=== PATIENT | female | born 1980 | race Two or more races ===

== ENCOUNTER 2018-04-08 08:09 | Inpatient (IN) | payer OTHER ==
--- NOTE | 2018-04-08 08:27 | PDOC ---
History of Present Illness - General History Source: Patient Exam Limitations: No Limitations - History of Present Illness Initial Comments: 04/08/18 09:29 The patient is a 38 year old female with a significant PMH of hidradenitis( recently put on ajay) who presents to the emergency department with right underarm abscess for 1 week. The patient reports that her underarm abscess has been getting progressively worse. The patient report experiencing pain with severity of 9/10. The patient reports that her underarm abscess was draining previously but is no longer draining. The patient reports diarrhea associated with her new medication. The patient reports that she has been following up with Dr. Cruz regularly. She denies any chest pain, shortness of breath, headache and dizziness. The patient denies any fever, chills, nausea, vomiting or constipation. The patient denies any urinary symptoms.The patient denies any other complaints. <Stephen Nicholas - Last Filed: 04/08/18 09:38> <Matt Alonso - Last Filed: 04/08/18 13:18> - General Chief Complaint: Abscess Boil Stated Complaint: SWOLLEN ARM Time Seen by Provider: 04/08/18 08:26 Past History <Stephen Nicholas - Last Filed: 04/08/18 09:38> - Past Medical History COPD: No GI Disorders: Yes (REFLUX) Other medical history: hidradenitis suppurativa ( H.S) - Family Disease History Family Disease History: Diabetes: Mother - Immunization History Immunization Up to Date: Yes - Suicide/Smoking/Psychosocial Hx Smoking Status: Yes Smoking History: Current every day smoker Have you smoked in the past 12 months: Yes Number of Cigarettes Smoked Daily: 10 Information on smoking cessation initiated: Yes 'Breaking Loose' booklet given: 04/08/18 Hx Alcohol Use: No Drug/Substance Use Hx: No Substance Use Type: None Hx Substance Use Treatment: No <Matt Alonso - Last Filed: 04/08/18 13:18> - Past Medical History Allergies/Adverse Reactions: Allergies Allergy/AdvReac Type Severity Reaction Status Date / Time No Known Drug Allergies Allergy Verified 04/08/18 08:10 Review of Systems - Review of Systems Able to Perform ROS?: Yes Comments:: 04/08/18 09:29 Constitutional: No recent illness; no fever ENT: No sore throat Cardiovascular: No palpitations; no chest pain Pulmonary: No cough; no trouble breathing Gastrointestinal: (+)diarrhea. No nausea; no vomiting Genitourinary: No urinary problems; no hematuria Skin: (+)right underarm abscess. Lymph system: No swollen glands Musculoskeletal: No joint swelling Neurological: No weakness; oo numbness; No Headache; no vertigo; no lightheadedness Psychiatric:No anxiety; no depression <Stephen Nicholas - Last Filed: 04/08/18 09:38> *Physical Exam - Vital Signs Last Vital Signs Temp Pulse Resp BP Pulse Ox 98.2 F 100 H 18 107/71 100 04/08/18 08:13 04/08/18 08:13 04/08/18 08:13 04/08/18 08:13 04/08/18 08:13 - Physical Exam Comments: 04/08/18 09:38 Vitals: Triage vital signs reviewed General Appearance: No acute distress, well nourished, well developed Head: Atraumatic Neck: Supple; No nuchal rigidity Chest Wall: Nontender Cardiac: Regular rate and rhythm, no murmurs, no rubs, no gallops Lungs: Clear to auscultation bilateral, good air movement bilaterally Abdomen: Soft, nondistended, normal bowel sounds, nontender to palpation Genitourinary: Rectal: Exam deferred Extremities: Full range of motion to all extremities, no cyanosis, clubbing, or edema Skin: (+)Right axillary hidradenitis with surrounding cellulitis and mild lymphatic spread. Warm and dry, no petechiae <Stephen Nicholas - Last Filed: 04/08/18 09:38> - Vital Signs Last Vital Signs Temp Pulse Resp BP Pulse Ox 98.2 F 100 H 18 107/71 100 04/08/18 08:13 04/08/18 08:13 04/08/18 08:13 04/08/18 08:13 04/08/18 08:13 <Matt Alonso - Last Filed: 04/08/18 13:18> ED Treatment Course - LABORATORY CBC & Chemistry Diagram: 04/08/18 09:50 04/08/18 09:50 <Matt Alonso - Last Filed: 04/08/18 13:18> Medical Decision Making - Medical Decision Making 04/08/18 09:3 Initial assessment: The patient is a 38 year old female with a significant PMH of hidradenitis( recently put on ajay) who presents to the emergency department with right underarm abscess for 1 week. The patient will be given IV for pain and rash control will be contacted <Stephen Nicholas - Last Filed: 04/08/18 09:38> - Medical Decision Making Failure of by mouth outpatient antibiotics. Hx and exam c/w progressive cellulitis from Hidradenitis superlativa. Areas of infection are indurated nonfluctuant not amenable to drainage at this time. Given the patient is on Humira and immunocompromised we'll admit to hospitalist for ID consultation and IV antibiotics IV Clinda and PO rifampin ordered Dr. Blount to admit patient for further management <Matt Alonso - Last Filed: 04/08/18 13:18> *DC/Admit/Observation/Transfer - Attestations Scribe Attestion: 04/08/18 09:33 Documentation prepared by Stephen Nicholas, acting as medical dosimetrist for Matt Alonso MD. <Stephen Nicholas - Last Filed: 04/08/18 09:38> - Discharge Dispostion Decision to Admit order: Yes <Matt Alonso - Last Filed: 04/08/18 13:18> Diagnosis at time of Disposition: Axillary hidradenitis suppurativa - Discharge Dispostion Condition at time of disposition: Stable
[2018-04-08] MEDS ORDERED: SODIUM CHLORIDE 0.9% 1000 ML INFUS.BAG IV STA (08:49)
[2018-04-08 10:02] LABS: VENOUS PH 7.43 (7.32-7.42)
[2018-04-08 10:03] LABS: VENOUS PC02 35.6 mmHg (38-52)
[2018-04-08 10:05] LABS: URINE APPEARANCE SLCLOUDY; URINE BILIRUBIN NEGATIVE (<2.0 mg/dL); URINE BLOOD 2+ (NEGATIVE); URINE COLOR YELLOW; URINE GLUCOSE (UA) NEGATIVE (NEGATIVE); URINE KETONE NEGATIVE (NEGATIVE); URINE LEUK ESTERASE NEGATIVE (NEGATIVE); URINE NITRITE NEGATIVE (NEGATIVE); URINE PROTEIN NEGATIVE (NEGATIVE)
[2018-04-08 10:05] LABS: BASO % 0.6 % (0-2.0); EOS % 0.3 % (0-4.5); HEMOGLOBIN 12.3 GM/dL (10.7-15.3); LYMPH % 17.8 % (8-40); MCH 29.3 pg (25.7-33.7); MCHC 34.1 g/dl (32.0-36.0); MEAN CELL VOLUME 85.8 fl (80-96); MEAN PLT VOLUME 10.2 fl (7.5-11.1); MONO % 4.4 % (3.8-10.2); NEUT % 76.9 % (42.8-82.8); PLATELET COUNT 231 K/MM3 (134-434); RBC 4.19 M/mm3 (3.60-5.2); RDW 13.4 % (11.6-15.6); WHITE BLOOD COUNT 22.6 K/mm3 (4.0-10.0)
[2018-04-08 10:07] LABS: EPI CELLS FEW /HPF (FEW); URINE BACTERIA RARE /hpf (NONE SEEN); URINE HYALINE CAST 2 /lpf; URINE MUCUS MANY
[2018-04-08 10:20] LABS: INR 1.19 (0.82-1.09); PROTHROMBIN TIME (PATIENT) 13.5 SEC (9.7-13.0)
[2018-04-08] MEDS ORDERED: CLINDAMYCIN 600MG PREMIX IVPB 600 MG/50 ML BAG IVPB ONE ×2 (10:24→11:49)
[2018-04-08] MEDS ORDERED: RIFAMPIN 300 MG CAPSULE PO ONE (10:25)
[2018-04-08] MEDS ORDERED: morphine CARPU-JECT 4 MG/1 ML DISP.SYRIN IVPUSH ONE (10:40)
[2018-04-08 10:55] LABS: ALBUMIN 3.4 g/dl (3.4-5.0); ALK PHOS 93 U/L (45-117); ANION GAP 6 (8-16); BILIRUBIN,TOTAL 0.4 mg/dL (0.2-1.0); BLOOD UREA NITROGEN 9 mg/dL (7-18); CALCIUM 8.5 mg/dL (8.5-10.1); CHLORIDE 109 mmol/L (98-107); CO2 24 mmol/L (21-32); CREATININE 0.8 mg/dL (0.55-1.02); GLUCOSE,RANDOM 97 mg/dL (74-106); POTASSIUM 3.8 mmol/L (3.5-5.1); SGOT/AST 31 U/L (15-37); SGPT/ALT 50 U/L (12-78); SODIUM 139 mmol/L (136-145); TOT PROT 7.6 g/dl (6.4-8.2)
[2018-04-08] MEDS ORDERED: morphine SULFATE 4 MG/ML VIAL ONE (11:49)
--- NOTE | 2018-04-08 13:42 | HP ---
Admitting History and Physical - Primary Care Physician PCP: Vitor Blount - Admission History of Present Illness: 38 year old female with a significant PMH of hidradenitis(recently put on ajay) who presents to the emergency department with right underarm abscess for 1 week. The patient reports that her underarm abscess has been getting progressively worse. The patient report experiencing pain with severity of 9/ 10. The patient reports that her underarm abscess was draining previously but is no longer draining. The patient reports diarrhea associated with her new medication. The patient reports that she has been following up with Dr. Cruz regularly. She denies any chest pain, shortness of breath, headache and dizziness. The patient denies any fever, chills, nausea, vomiting or constipation. The patient denies any urinary symptoms.The patient denies any other complaints. - Past Medical History ...LMP: 06/03/13 - Smoking History Smoking history: Current every day smoker Have you smoked in the past 12 months: Yes Aproximately how many cigarettes per day: 10 - Alcohol/Substance Use Hx Alcohol Use: No Home Medications - Allergies Allergies/Adverse Reactions: Allergies Allergy/AdvReac Type Severity Reaction Status Date / Time No Known Drug Allergies Allergy Verified 04/08/18 08:10 Physical Examination Vital Signs: Vital Signs Temperature 98.6 F 04/08/18 13:14 Pulse Rate 76 04/08/18 13:14 Respiratory Rate 18 04/08/18 13:14 Blood Pressure 119/66 04/08/18 13:14 O2 Sat by Pulse Oximetry (%) 100 04/08/18 08:13 Constitutional: Yes: No Distress HENT: Yes: Atraumatic Neck: Yes: Supple Cardiovascular: Yes: Regular Rate and Rhythm Respiratory: Yes: CTA Bilaterally Gastrointestinal: Yes: Normal Bowel Sounds Extremities: Yes: WNL, Other (R axilla abcess) Edema: No Neurological: Yes: Alert, Oriented Labs: CBC, BMP 04/08/18 09:50 04/08/18 09:50 Problem List - Problems (1) Axillary hidradenitis suppurativa Assessment/Plan: iv abx id and surgery consult Code(s): L73.2 - HIDRADENITIS SUPPURATIVA (2) Abscess Code(s): L02.91 - CUTANEOUS ABSCESS, UNSPECIFIED Assessment/Plan Laboratory Results - last 24 hr 04/08/18 04/08/18 04/08/18 09:50 09:50 09:50 WBC 22.6 H D RBC 4.19 Hgb 12.3 D Hct 36.0 MCV 85.8 MCH 29.3 MCHC 34.1 RDW 13.4 D Plt Count 231 D MPV 10.2 Neutrophils % 76.9 Lymphocytes % 17.8 Monocytes % 4.4 Eosinophils % 0.3 Basophils % 0.6 PT with INR 13.50 H INR 1.19 H PTT (Actin FS) 28.0 VBG pH 7.43 H POC VBG pCO2 35.6 L POC VBG pO2 54.0 H Mixed VBG HCO3 23.6 Sodium Potassium Chloride Carbon Dioxide Anion Gap BUN Creatinine Creat Clearance w eGFR Random Glucose Lactic Acid Calcium Total Bilirubin AST ALT Alkaline Phosphatase Troponin I Total Protein Albumin Urine Color Urine Appearance Urine pH Ur Specific Kinder Urine Protein Urine Glucose (UA) Urine Ketones Urine Blood Urine Nitrite Urine Bilirubin Urine Urobilinogen Ur Leukocyte Esterase Urine WBC (Auto) Urine RBC (Auto) Ur Epithelial Cells Urine Bacteria Hyaline Casts Urine Mucus 04/08/18 04/08/18 04/08/18 09:50 09:50 09:50 WBC RBC Hgb Hct MCV MCH MCHC RDW Plt Count MPV Neutrophils % Lymphocytes % Monocytes % Eosinophils % Basophils % PT with INR INR PTT (Actin FS) VBG pH POC VBG pCO2 POC VBG pO2 Mixed VBG HCO3 Sodium 139 Potassium 3.8 Chloride 109 H Carbon Dioxide 24 Anion Gap 6 L BUN 9 Creatinine 0.8 Creat Clearance w eGFR > 60 Random Glucose 97 Lactic Acid 1.2 Calcium 8.5 Total Bilirubin 0.4 D AST 31 ALT 50 Alkaline Phosphatase 93 Troponin I < 0.02 Total Protein 7.6 Albumin 3.4 Urine Color Urine Appearance Urine pH Ur Specific Kinder Urine Protein Urine Glucose (UA) Urine Ketones Urine Blood Urine Nitrite Urine Bilirubin Urine Urobilinogen Ur Leukocyte Esterase Urine WBC (Auto) Urine RBC (Auto) Ur Epithelial Cells Urine Bacteria Hyaline Casts Urine Mucus 04/08/18 04/08/18 09:55 13:00 WBC RBC Hgb Hct MCV MCH MCHC RDW Plt Count MPV Neutrophils % Lymphocytes % Monocytes % Eosinophils % Basophils % PT with INR INR PTT (Actin FS) VBG pH POC VBG pCO2 POC VBG pO2 Mixed VBG HCO3 Sodium Potassium Chloride Carbon Dioxide Anion Gap BUN Creatinine Creat Clearance w eGFR Random Glucose Lactic Acid 0.7 Calcium Total Bilirubin AST ALT Alkaline Phosphatase Troponin I Total Protein Albumin Urine Color Yellow Urine Appearance Slcloudy Urine pH 5.0 Ur Specific Kinder 1.029 Urine Protein Negative Urine Glucose (UA) Negative Urine Ketones Negative Urine Blood 2+ H Urine Nitrite Negative Urine Bilirubin Negative Urine Urobilinogen 2.0 H Ur Leukocyte Esterase Negative Urine WBC (Auto) 3 Urine RBC (Auto) 27 Ur Epithelial Cells Few Urine Bacteria Rare Hyaline Casts 2 Urine Mucus Many Active Medications Generic Name Dose Route Start Last Admin Trade Name Freq PRN Reason Stop Dose Admin Acetaminophen 650 mg 04/08/18 15:38 Tylenol - PO Q6H PRN FEVER Acetaminophen 650 mg 04/08/18 15:53 Tylenol - PO Q4H PRN PAIN LEVEL 4 - 6 Docusate Sodium 100 mg 04/08/18 17:31 Colace - PO BID PRN CONSTIPATION Piperacillin Sod/Tazobactam 50 mls @ 100 mls/hr 04/08/18 14:30 04/08/18 15:50 Sod 3.375 gm/ Dextrose IVPB 100 mls/hr Q8H-IV LILIANE Administration Protocol Morphine Sulfate 4 mg 04/08/18 17:36 Morphine Sulfate IVPUSH Q4H PRN PAIN LEVEL 7 - 10 Oxycodone HCl 10 mg 04/08/18 15:53 Roxicodone - PO Q4H PRN PAIN LEVEL 4 - 6
[2018-04-08] MEDS ORDERED: ACETAMINOPHEN 325 MG TABLET (FP) PO PRN ×2 (13:43→15:38)
--- NOTE | 2018-04-08 14:25 | CON.ID ---
Consult Consult Specialty:: infectious diseases Reason for Consultation:: cellulittis of the axilla with hydradenitis and leukocytosis - History of Present Illness Chief Complaint: pain in the rt axilla with swelling History of Present Illness: 38 year old female with a significant PMH of hidradenitis(recently put on ajay) who presents to the emergency department with right underarm swelling for 1 week. The patient reports that her underarm abscess has been getting progressively worse. The patient report experiencing pain with severity of 9/ 10. The patient reports that her underarm abscess was draining previously but is no longer draining. She mentions that she has had this couple of times under other axilla and was drained She denies any chest pain, shortness of breath, headache and dizziness. The patient denies any fever, chills, nausea, vomiting or constipation. The patient denies any urinary symptoms.The patient denies any other complaints. she has severe pain though while raising the arm patient also has a very small swellings in both groins - History Source History Provided By: Patient Limitations to Obtaining History: No Limitations - Past Medical History ...LMP: 06/03/13 - Alcohol/Substance Use Hx Alcohol Use: No - Smoking History Smoking history: Current every day smoker Have you smoked in the past 12 months: Yes Aproximately how many cigarettes per day: 10 Home Medications - Allergies Allergies/Adverse Reactions: Allergies Allergy/AdvReac Type Severity Reaction Status Date / Time No Known Drug Allergies Allergy Verified 04/08/18 08:10 Review of Systems - Review of Systems Constitutional: reports: No Symptoms Eyes: reports: No Symptoms HENT: reports: No Symptoms Neck: reports: No Symptoms Cardiovascular: reports: No Symptoms Respiratory: reports: No Symptoms Gastrointestinal: reports: No Symptoms Musculoskeletal: reports: Other (axillary pain) Integumentary: reports: Erythema, Other (hydradenitits rt axilla and groins) Neurological: reports: No Symptoms Endocrine: reports: No Symptoms Hematology/Lymphatic: reports: No Symptoms Psychiatric: reports: No Symptoms Physical Exam Vital Signs: Vital Signs Temperature 98.4 F 04/08/18 13:57 Pulse Rate 74 04/08/18 13:57 Respiratory Rate 18 04/08/18 13:57 Blood Pressure 110/60 04/08/18 13:57 O2 Sat by Pulse Oximetry (%) 100 04/08/18 08:13 Constitutional: Yes: Well Nourished, Calm, Moderate Distress Eyes: Yes: Conjunctiva Clear HENT: Yes: Atraumatic, Normocephalic Neck: Yes: Supple, Trachea Midline Cardiovascular: Yes: Regular Rate and Rhythm Respiratory: Yes: Regular, CTA Bilaterally Gastrointestinal: Yes: Normal Bowel Sounds, Soft Musculoskeletal: Yes: WNL Extremities: Yes: Other (rt axillary swelling with pain and collection and tenderness) Integumentary: Yes: Erythema (rt axilla), Other Neurological: Yes: Alert, Oriented Psychiatric: Yes: Alert, Oriented Labs: CBC, BMP 04/08/18 09:50 04/08/18 09:50 Assessment/Plan Problem List - Problems (1) Hidradenitis suppurativa of right axilla Code(s): L73.2 - HIDRADENITIS SUPPURATIVA (2) Abscess of right axilla Code(s): L02.411 - CUTANEOUS ABSCESS OF RIGHT AXILLA (3) Cellulitis of right axilla Code(s): L03.111 - CELLULITIS OF RIGHT AXILLA (4) Obesity (BMI 35.0-39.9 without comorbidity) Code(s): E66.9 - OBESITY, UNSPECIFIED plan patient going for surgery today continue abx cx to be send rest as per the team
[2018-04-08 14:34] VITALS: BMI 35.2
[2018-04-08] MEDS ORDERED: morphine SULFATE 4 MG/ML VIAL IVPUSH PRN ×2 (15:37→17:36)
[2018-04-08] MEDS ORDERED: DEXTROSE 5%-WATER - 50 ML IVPB ONE (15:46)
[2018-04-08] MEDS ORDERED: PIPERACILLIN/TAZOBACTAM 3.375 GM VIAL IVPB ONE (15:46)
[2018-04-08] MEDS: PIPERACILLIN/TAZOB 3.375 GM 3.375 GM in DEXTROSE 5%-WATER - 50 ML IVPB SCH ×2 (15:50→18:57)
[2018-04-08] MEDS ORDERED: DOCUSATE SODIUM 100 MG CAPSULE (FP) PO PRN (17:31)
--- NOTE | 2018-04-08 18:01 | CONSULT ---
Consult Consult Specialty:: General Surgery Referred by:: Dr. Liriano Reason for Consultation:: right axillary hidradenitis with abscess - History of Present Illness Chief Complaint: right axillary swelling, pain, redness History of Present Illness: 38yo obese F with h/o hidradenitis in axillae, inframammary folds, groin, s/p L axillary excision and skin grafting and R inframammary excision and closure at [facility] last year, presented with significant pain, swelling, redness in right axilla, worsening since last week. She used to be on Remicade and was well -controlled, but insurance stopped covering it, and she started getting flares again. She follows with Dr. Cruz production control clerk, and was started on Doxycycline 03/26/18 for flares including a lesion at medial right inframammary fold, which was I&D'd by him and has since resolved. She also developed swelling , pain and redness in the right axilla, which initially was draining, but has since been getting worse, though the drainage has stopped. Last week, Sun she was started on Humira and is due for her next dose next week. She tried to reach Dr. Cruz when the axillary pain and swelling got worse, but could not take the pain and came to ER. In the ER, she was afebrile, wbc 22.6, and she was started on IV antibiotics and admitted to medicine. Surgery is consulted after ID saw her to continue antibiotics, to evaluate for possible I&D of right axilla. She is seen and examined in bed, crying in pain, and can lift her right arm but is extremely tender in the axilla. She had just eaten food at 3:30pm. - History Source History Provided By: Patient Limitations to Obtaining History: No Limitations - Past Medical History Gastrointestinal: Yes: GERD ...LMP: 06/03/13 ...: No Infectious Disease: Yes: C-Diff (last year) Dermatology: Yes: Other (hidradenitis suppurativa (axillae, inframammary, groin) ) - Past Surgical History Additional Surgical History: hidradenitis excision left axilla with skin graft; multiple I&Ds - Alcohol/Substance Use Hx Alcohol Use: Yes (social) History of Substance Use: reports: None - Smoking History Smoking history: Current every day smoker Have you smoked in the past 12 months: Yes Aproximately how many cigarettes per day: 10 - Social History Usual Living Arrangement: With Child ADL: Independent Home Medications - Allergies Allergies/Adverse Reactions: Allergies Allergy/AdvReac Type Severity Reaction Status Date / Time No Known Drug Allergies Allergy Verified 04/08/18 08:10 - Home Medications Home Medications (free text): spironolactone - restarted last week (for hidradenitis and androgenized sx). doxycycline 100mg bid started 03/26/18. Humira started last week Sun. Nexium prn. tylenol prn Family Disease History - Family Disease History Family Disease History: Diabetes: Grandparent, Heart Disease: Mother, CA: Grandparent, Father Review of Systems - Review of Systems Constitutional: reports: Loss of Appetite. denies: Chills, Fever Eyes: denies: Blurred Vision, Recent Change in Vision HENT: denies: Difficult Swallowing, Throat Pain Neck: denies: Swollen Glands, Tenderness Cardiovascular: denies: Chest Pain, Palpitations Respiratory: denies: Cough, SOB Gastrointestinal: reports: Diarrhea (started last week, ?abx-related). denies: Abdominal Pain, Constipation, Nausea, Vomiting Genitourinary: denies: Burning, Dysuria Breasts: reports: See HPI Musculoskeletal: denies: Back Pain, Joint Pain, Muscle Pain Integumentary: reports: Erythema (right axilla with hpi), Lump (right axilla with hpi) Neurological: denies: Dizziness, Headache Psychiatric: denies: Anxiety, Depression Physical Exam Vital Signs: Vital Signs Temperature 98.4 F 04/08/18 13:57 Pulse Rate 74 04/08/18 13:57 Respiratory Rate 18 04/08/18 13:57 Blood Pressure 110/60 04/08/18 13:57 O2 Sat by Pulse Oximetry (%) 100 04/08/18 14:09 Constitutional: Yes: Anxious, Moderate Distress (secondary to pain), Obese Eyes: Yes: Conjunctiva Clear, EOM Intact HENT: Yes: Atraumatic, Normocephalic Neck: Yes: Supple, Trachea Midline Cardiovascular: Yes: Regular Rate and Rhythm, Murmur (soft systolic) Respiratory: Yes: Regular, CTA Bilaterally Gastrointestinal: Yes: Normal Bowel Sounds, Soft, Abdomen, Obese. No: Tenderness ...Rectal Exam: Yes: Deferred Renal/: Yes: Other (healed scars in groin areas, no inflammatory changes currently). No: CVA Tenderness - Left, CVA Tenderness - Right Breast(s): Yes: Other (well-healed scar under right breast, small divot/dimple in scar at medial edge of inframammary fold, where lesion was bigger last week but has since resolved; healed scar at medial aspect of left inframammary fold) Musculoskeletal: No: Joint Swelling, Muscle Weakness Extremities: No: Cool, Cyanosis Edema: No Peripheral Pulses WNL: Yes Integumentary: Yes: Erythema (right axilla), Other (well-healed left axillary skin graft scar; right axilla with multiple divots and scars from previous I&Ds and sinus tracts, swelling and erythema over lateral and posterior areas, very tender, mild fluctuance possible, no drainage, mild local streaking ? lymphangitis). No: Jaundice, Rash Neurological: Yes: Alert, Oriented Psychiatric: Yes: Alert, Oriented Labs: CBC, BMP 04/08/18 09:50 04/08/18 09:50 CMP Sodium 139 mmol/L (136-145) 04/08/18 09:50 Potassium 3.8 mmol/L (3.5-5.1) 04/08/18 09:50 Chloride 109 mmol/L (98-107) H 04/08/18 09:50 Carbon Dioxide 24 mmol/L (21-32) 04/08/18 09:50 Anion Gap 6 (8-16) L 04/08/18 09:50 BUN 9 mg/dL (7-18) 04/08/18 09:50 Creatinine 0.8 mg/dL (0.55-1.02) 04/08/18 09:50 Creat Clearance w eGFR > 60 (>60) 04/08/18 09:50 Random Glucose 97 mg/dL (74-106) 04/08/18 09:50 Lactic Acid 0.7 mmol/L (0.0-2.0) 04/08/18 13:00 Calcium 8.5 mg/dL (8.5-10.1) 04/08/18 09:50 Total Bilirubin 0.4 mg/dL (0.2-1.0) D 04/08/18 09:50 AST 31 U/L (15-37) 04/08/18 09:50 ALT 50 U/L (12-78) 04/08/18 09:50 Alkaline Phosphatase 93 U/L (45-117) 04/08/18 09:50 Troponin I < 0.02 ng/ml (0.00-0.05) 04/08/18 09:50 Total Protein 7.6 g/dl (6.4-8.2) 04/08/18 09:50 Albumin 3.4 g/dl (3.4-5.0) 04/08/18 09:50 INR, PTT INR 1.19 (0.82-1.09) H 04/08/18 09:50 Problem List - Problems (1) Hidradenitis suppurativa of right axilla Assessment/Plan: acute flare with likely abscess pain manageable with morphine, percocet also ordered pt ate this afternoon - cannot take to OR until am Discussed with patient risks, benefits and alternatives of incision and drainage of right axillary abscess/hidradenitis, including but not limited to bleeding, infection, injury to adjacent structures; alternatives include antibiotics, delayed or no surgery - risks of this include failure of nonoperative therapy, worsening abscess, sepsis. Patient desires to proceed with operation - will take to OR for above in am. Informed consent signed for same. NPO after midnight antibiotics per ID pain meds prn OOB/ambulating as able pt will need VNS arranged postop for daily wound care with packings after discharge home instructions will be in d/c plan Thank you for the opportunity to participate in the care of this patient. Code(s): L73.2 - HIDRADENITIS SUPPURATIVA (2) Abscess of right axilla Code(s): L02.411 - CUTANEOUS ABSCESS OF RIGHT AXILLA (3) Cellulitis of right axilla Assessment/Plan: antibiotics per ID Code(s): L03.111 - CELLULITIS OF RIGHT AXILLA (4) Obesity (BMI 35.0-39.9 without comorbidity) Code(s): E66.9 - OBESITY, UNSPECIFIED
[2018-04-08] MEDS ORDERED: diphenhydrAMINE HCL 25 MG CAPSULE (FP) PO ONE (20:45)
[2018-04-09] MEDS: oxyCODONE HCL 5 MG TABLET PO PRN ×6 (00:33→21:56)
[2018-04-09] MEDS: ACETAMINOPHEN 325 MG TABLET (FP) PO PRN ×5 (00:36→21:57)
[2018-04-09] MEDS ORDERED: PIPERACILLIN/TAZOBACTAM 3.375 GM VIAL IVPB ONE ×3 (02:20→17:29)
[2018-04-09] MEDS ORDERED: DEXTROSE 5%-WATER - 50 ML IVPB ONE ×3 (02:20→17:29)
[2018-04-09] MEDS: PIPERACILLIN/TAZOB 3.375 GM 3.375 GM in DEXTROSE 5%-WATER - 50 ML IVPB SCH ×3 (02:24→17:34)
[2018-04-09 07:23] LABS: BASO % 0.2 % (0-2.0); EOS % 0.6 % (0-4.5); HEMATOCRIT 33.5 % (32.4-45.2); HEMOGLOBIN 11.1 GM/dL (10.7-15.3); LYMPH % 23.7 % (8-40); MCH 29.1 pg (25.7-33.7); MCHC 33.2 g/dl (32.0-36.0); MEAN CELL VOLUME 87.6 fl (80-96); MEAN PLT VOLUME 10.4 fl (7.5-11.1); MONO % 6.7 % (3.8-10.2); NEUT % 68.8 % (42.8-82.8); PLATELET COUNT 207 K/MM3 (134-434); RBC 3.82 M/mm3 (3.60-5.2); RDW 13.8 % (11.6-15.6); WHITE BLOOD COUNT 19.5 K/mm3 (4.0-10.0)
[2018-04-09 07:50] LABS: CHLORIDE 107 mmol/L (98-107); POTASSIUM 3.7 mmol/L (3.5-5.1); SODIUM 139 mmol/L (136-145)
[2018-04-09 07:59] LABS: ALBUMIN 3.1 g/dl (3.4-5.0); ALK PHOS 79 U/L (45-117); ANION GAP 6 (8-16); BILIRUBIN,TOTAL 0.6 mg/dL (0.2-1.0); BLOOD UREA NITROGEN 9 mg/dL (7-18); CALCIUM 8.1 mg/dL (8.5-10.1); CO2 26 mmol/L (21-32); CREATININE 0.9 mg/dL (0.55-1.02); GLUCOSE,RANDOM 90 mg/dL (74-106); SGOT/AST 25 U/L (15-37); SGPT/ALT 39 U/L (12-78)
--- NOTE | 2018-04-09 11:47 | PN ---
Progress Note, Physician History of Present Illness: still with lot of pain awaiting surgery planned for today no new issues - Current Medication List Current Medications: Active Medications Acetaminophen (Tylenol -) 650 mg PO Q6H PRN PRN Reason: FEVER Acetaminophen (Tylenol -) 650 mg PO Q4H PRN PRN Reason: PAIN LEVEL 4 - 6 Last Admin: 04/09/18 08:26 Dose: 650 mg Docusate Sodium (Colace -) 100 mg PO BID PRN PRN Reason: CONSTIPATION Piperacillin Sod/Tazobactam (Sod 3.375 gm/ Dextrose) 50 mls @ 100 mls/hr IVPB Q8H-IV LILIANE PRN Reason: Protocol Last Admin: 04/09/18 09:37 Dose: 100 mls/hr Oxycodone HCl (Roxicodone -) 10 mg PO Q4H PRN PRN Reason: PAIN LEVEL 4 - 6 Last Admin: 04/09/18 08:26 Dose: 10 mg - Objective Vital Signs: Vital Signs Temperature 99.2 F 04/09/18 05:40 Pulse Rate 73 04/09/18 05:40 Respiratory Rate 18 04/09/18 09:00 Blood Pressure 109/60 04/09/18 05:40 O2 Sat by Pulse Oximetry (%) 100 04/09/18 09:00 Constitutional: Yes: Calm, Mild Distress, Obese Cardiovascular: Yes: Regular Rate and Rhythm Respiratory: Yes: Regular, CTA Bilaterally Gastrointestinal: Yes: Normal Bowel Sounds, Soft Musculoskeletal: Yes: WNL Extremities: Yes: WNL, Other (rt axillary swelling) Neurological: Yes: Alert, Oriented Psychiatric: Yes: Alert Labs: CBC, BMP 04/09/18 06:20 04/09/18 06:20 INR, PTT INR 1.19 (0.82-1.09) H 04/08/18 09:50 Assessment/Plan Problem List - Problems (1) Hidradenitis suppurativa of right axilla Code(s): L73.2 - HIDRADENITIS SUPPURATIVA (2) Abscess of right axilla Code(s): L02.411 - CUTANEOUS ABSCESS OF RIGHT AXILLA (3) Cellulitis of right axilla Code(s): L03.111 - CELLULITIS OF RIGHT AXILLA (4) Obesity (BMI 35.0-39.9 without comorbidity) Code(s): E66.9 - OBESITY, UNSPECIFIED plan surgery postponed to today continue abx cx to be send rest as per the team pain mgmt
--- NOTE | 2018-04-09 11:56 | EKG ---
Test Reason : Blood Pressure : / mmHG Vent. Rate : 075 BPM Atrial Rate : 075 BPM P-R Int : 186 ms QRS Dur : 082 ms QT Int : 418 ms P-R-T Axes : 031 049 016 degrees QTc Int : 466 ms NORMAL SINUS RHYTHM NORMAL ECG WHEN COMPARED WITH ECG OF 24-JUN-2013 23:24, NO SIGNIFICANT CHANGE WAS FOUND Confirmed by MD CRISTINA, TIANA ([id number]) on 04/09/2018 11:55:47 AM Referred By: SUSIE VANCE Confirmed By:TIANA EVANS MD
[2018-04-09] MEDS ORDERED: ONDANSETRON 4 MG/2 ML VIAL IVPUSH PRN (14:29)
[2018-04-09] MEDS ORDERED: LACTATED RINGERS SOLUTION 1,000 ML IV SCH (14:30)
[2018-04-09] MEDS ORDERED: PROPOFOL 20 ML ONE ×2 (14:46→14:55)
[2018-04-09] MEDS ORDERED: KETOROLAC TROMETHAMINE 30 MG/1 ML VIAL ONE (14:47)
[2018-04-09] MEDS ORDERED: MIDAZOLAM HCL 2 MG/2 ML SINGLE DOSE VIAL ONE (14:47)
[2018-04-09] MEDS ORDERED: LIDOCAINE HCL/PF 2% SDV 5ML VIAL ONE (14:47)
[2018-04-09] MEDS ORDERED: SUCCINYLCHOLINE CHLORIDE 200 MG/10 ML VIAL ONE (14:47)
--- NOTE | 2018-04-09 15:44 | OP ---
Operative Note - Note: Operative Date: 04/09/18 Pre-Operative Diagnosis: right axillary hidradenitis with abscess Operation: incision and drainage of right axillary abscess, complicated Findings: 20ml pus evacuated from cavity through counterincisions at upper and lower end; irrigated, 1/4" [place] drain left through both incisions and sutured to itself Post-Operative Diagnosis: Same as Pre-op Surgeon: Reid Cho Pricing Intern: Ortiz Watkins Anesthesia: General (LMA) Specimens Removed: culture to micro Estimated Blood Loss (mls): 5 Drains & Tubes with Location: Mason drain R axilla Fluid Volume Replaced (mls): 400 (crystalloid) Operative Report Dictated: Yes
[2018-04-09] MEDS ORDERED: ACETAMINOPHEN INJECTION 100 ML IVPB ONE (15:45)
[2018-04-09] MEDS ORDERED: ACETAMINOPHEN 325 MG TABLET (FP) PO PRN (15:46)
[2018-04-09] MEDS ORDERED: oxyCODONE HCL 5 MG TABLET PO PRN (15:46)
[2018-04-09] MEDS ORDERED: DOCUSATE SODIUM 100 MG CAPSULE (FP) PO PRN (15:59)
[2018-04-09] MEDS: ACETAMINOPHEN 1000 MG/100 ML VIAL (NON FORMULARY) IVPB ONE ×2 (16:00→17:19)
[2018-04-09] MEDS ORDERED: ACETAMINOPHEN 1000 MG/100 ML VIAL (NON FORMULARY) IVPB ONE (16:15)
--- NOTE | 2018-04-09 16:36 | OP ---
DATE OF OPERATION: 04/09/2018 PREOPERATIVE DIAGNOSIS: Right axillary hidradenitis with abscess. POSTOPERATIVE DIAGNOSIS: Right axillary hidradenitis with abscess. PROCEDURE: Incision and drainage of right axillary abscess, complicated. SURGEON: Reid Cho MD TRUST ADMINISTRATIVE ASSISTANT: rOtiz Watkins MD ANESTHESIA: General by LMA. ESTIMATED BLOOD LOSS: 5 mL FLUIDS: Crystalloid 400 mL. SPECIMEN: Culture to Microbiology. DRAINS: A Mason drain was left in the right axilla. FINDINGS: Twenty milliliters of pus was evacuated from the cavity through counter-incisions at the upper and lower end. It was irrigated, and a 1/4-inch Mason drain left through both incisions and sutured to itself. DISPOSITION: Stable and awake to PACU. INDICATIONS FOR PROCEDURE: The patient is a 38-year-old, obese female with a history of hidradenitis in the axillae, inframammary folds, and groin, who presented to the emergency room with significant pain, swelling, and redness in the right axilla, worsening over the course of a week despite outpatient antibiotics of doxycycline. She has recently been started on Humira and had an initial white count of 22, 000. She was admitted to the medical service, started on IV antibiotics, and given pain medication. Risks, benefits, and alternatives of incision and drainage of right axillary abscess/hidradenitis in the operating room including, but not limited to, bleeding, infection, and injury to adjacent structures were discussed with the patient, who desires to proceed with the operation and is now brought to the OR for the same after signing informed consent. OPERATIVE TECHNIQUE: The patient was brought to the operating room and laid supine on the operating table. Sequential compression devices were applied to bilateral lower extremities, and as the patient was on treatment antibiotics on the floor with her last dose given as scheduled, no additional antibiotics were given in the operating room immediately prior to incision. After induction and LMA placement by Anesthesia, the patient was positioned with her elbow flexed and arm over her head to expose the right axilla. A small amount of axillary hair was clipped prior to prepping with Betadine and draping in sterile fashion. The fluctuant area of the abscess was easily appreciated now under anesthesia as being toward the lateral aspect of the axilla. There were a number of healed scars and crevices with sinus tracts, only one of which anteriorly had a small amount of thin purulent droplets expressible from it. This was not near the intended area of relief of the abscess. A small incision point was marked at the superior aspect of the fluctuant area and incised with a scalpel. The area was deepened into the subcutaneous tissues with a clamp tip until purulent drainage was encountered. A culture of pus was sent on a swab to Microbiology and suction tip used to evacuate the cavity of approximately 20 mL of pus. The suction tip was used to identify the inferior aspect of the cavity which was also noted to be at a soft, necrotic-looking skin spot. Toward the inferior aspect of this area, a very small ellipse of skin was excised, again with a scalpel, opening a counter-incision at the bottom end of the cavity. A fingertip was inserted through this lower incision and used to ensure all loculations on the inside of the cavity were broken up. The cavity lynn felt mostly smooth, and all pus was evacuated. It was irrigated from top to bottom several times with saline solution. Hemostasis was achieved with time and local pressure, although Bovie cautery was used at the exit site at the bottom on a couple of skin-edge bleeders. A 1/4-inch [place] drain was then threaded from one end of the cavity to the other through the incisions and sutured to itself with two sutures. The end was trimmed to leave a loop going through the cavity. Betadine was cleansed off the patient. The area was cleaned and dried, and a dressing of gauze and ABD pad held in place with silk tape was applied. Counts were correct at the end of the procedure. The patient was awakened and the LMA removed by Anesthesia. She was then moved back to a stretcher and taken to the recovery room in stable condition, having tolerated the procedure well. Reid Cho M.D. [id number] JOCE
--- NOTE | 2018-04-09 17:03 | PN ---
Progress Note, Physician History of Present Illness: s/p I and d - Current Medication List Current Medications: Active Medications Acetaminophen (Tylenol -) 650 mg PO Q6H PRN PRN Reason: FEVER Acetaminophen (Tylenol -) 650 mg PO Q4H PRN PRN Reason: PAIN LEVEL 6-10 Docusate Sodium (Colace -) 100 mg PO BID PRN PRN Reason: CONSTIPATION Piperacillin Sod/Tazobactam (Sod 3.375 gm/ Dextrose) 50 mls @ 100 mls/hr IVPB Q8H-IV LILIANE PRN Reason: Protocol Oxycodone HCl (Roxicodone -) 10 mg PO Q4H PRN PRN Reason: PAIN LEVEL 6-10 - Objective Vital Signs: Vital Signs Temperature 99.0 F 04/09/18 15:37 Pulse Rate 68 04/09/18 16:15 Respiratory Rate 12 04/09/18 16:15 Blood Pressure 106/40 04/09/18 16:15 O2 Sat by Pulse Oximetry (%) 100 04/09/18 16:15 Constitutional: Yes: No Distress HENT: Yes: Atraumatic Neck: Yes: Supple Cardiovascular: Yes: Regular Rate and Rhythm Respiratory: Yes: CTA Bilaterally Gastrointestinal: Yes: Normal Bowel Sounds Extremities: Yes: Other (s/p i and d R axilla) Neurological: Yes: Alert, Oriented Labs: CBC, BMP 04/09/18 06:20 04/09/18 06:20 INR, PTT INR 1.19 (0.82-1.09) H 04/08/18 09:50 Problem List - Problems (1) Axillary hidradenitis suppurativa Assessment/Plan: iv abx s/p I and d Code(s): L73.2 - HIDRADENITIS SUPPURATIVA (2) Abscess Code(s): L02.91 - CUTANEOUS ABSCESS, UNSPECIFIED
[2018-04-10] MEDS ORDERED: MAG HYDROX/AL HYDROX/SIMETH 30 ML UNIT-DOSE CUP PO ONE (01:30)
[2018-04-10] MEDS ORDERED: DEXTROSE 5%-WATER - 50 ML IVPB ONE ×2 (02:36→18:08)
[2018-04-10] MEDS ORDERED: PIPERACILLIN/TAZOBACTAM 3.375 GM VIAL IVPB ONE ×3 (02:36→18:08)
[2018-04-10] MEDS: oxyCODONE HCL 5 MG TABLET PO PRN ×6 (02:38→22:22)
[2018-04-10] MEDS: PIPERACILLIN/TAZOB 3.375 GM 3.375 GM in DEXTROSE 5%-WATER - 50 ML IVPB SCH ×3 (02:39→18:11)
[2018-04-10] MEDS: ACETAMINOPHEN 325 MG TABLET (FP) PO PRN ×6 (02:39→22:22)
--- NOTE | 2018-04-10 08:18 | PN ---
Progress Note (short form) - Note Progress Note: POD #1 - s/p drainage of hidradenitis under general anesthesia. VSS. Pt. doing well, sitting up comfortably in bed. No complaints. No apparent anesthetic complications noted. Continue current care.
[2018-04-10] MEDS: PANTOPRAZOLE 40 MG TABLET (FP) PO SCH (09:23)
--- NOTE | 2018-04-10 12:40 | PN ---
Progress Note, Physician History of Present Illness: patient doing well no complaints post op - Current Medication List Current Medications: Active Medications Acetaminophen (Tylenol -) 650 mg PO Q6H PRN PRN Reason: FEVER Last Admin: 04/10/18 06:04 Dose: 650 mg Acetaminophen (Tylenol -) 650 mg PO Q4H PRN PRN Reason: PAIN LEVEL 6-10 Last Admin: 04/10/18 10:06 Dose: 650 mg Docusate Sodium (Colace -) 100 mg PO BID PRN PRN Reason: CONSTIPATION Last Admin: 04/10/18 09:23 Dose: 100 mg Piperacillin Sod/Tazobactam (Sod 3.375 gm/ Dextrose) 50 mls @ 100 mls/hr IVPB Q8H-IV LILIANE PRN Reason: Protocol Last Admin: 04/10/18 09:23 Dose: 100 mls/hr Oxycodone HCl (Roxicodone -) 10 mg PO Q4H PRN PRN Reason: PAIN LEVEL 6-10 Last Admin: 04/10/18 10:06 Dose: 10 mg Pantoprazole Sodium (Protonix -) 40 mg PO DAILY [facility] Last Admin: 04/10/18 09:23 Dose: 40 mg - Objective Vital Signs: Vital Signs Temperature 98.5 F 04/10/18 09:00 Pulse Rate 99 H 04/10/18 09:00 Respiratory Rate 18 04/10/18 09:00 Blood Pressure 127/93 04/10/18 09:00 O2 Sat by Pulse Oximetry (%) 100 04/10/18 09:00 Constitutional: Yes: No Distress, Calm, Obese Cardiovascular: Yes: Regular Rate and Rhythm Respiratory: Yes: Regular, CTA Bilaterally Gastrointestinal: Yes: Normal Bowel Sounds, Soft Musculoskeletal: Yes: WNL Extremities: Yes: WNL Neurological: Yes: Alert, Oriented Psychiatric: Yes: Alert Labs: CBC, BMP 04/09/18 06:20 04/09/18 06:20 INR, PTT INR 1.19 (0.82-1.09) H 04/08/18 09:50 Assessment/Plan Problem List - Problems (1) Hidradenitis suppurativa of right axilla Code(s): L73.2 - HIDRADENITIS SUPPURATIVA (2) Abscess of right axilla Code(s): L02.411 - CUTANEOUS ABSCESS OF RIGHT AXILLA (3) Cellulitis of right axilla Code(s): L03.111 - CELLULITIS OF RIGHT AXILLA (4) Obesity (BMI 35.0-39.9 without comorbidity) Code(s): E66.9 - OBESITY, UNSPECIFIED plan post op doing well continue abx await for cx report
--- NOTE | 2018-04-10 17:37 | PN ---
Progress Note, Physician History of Present Illness: s/p I&D right axillary hidradenitis abscess with drain placement feeling much better - pain 4/10, 6-7 with moving around much can close and open shoulder/axilla eating, comfortable dressing intact - Current Medication List Current Medications: Active Medications Acetaminophen (Tylenol -) 650 mg PO Q6H PRN PRN Reason: FEVER Last Admin: 04/10/18 06:04 Dose: 650 mg Acetaminophen (Tylenol -) 650 mg PO Q4H PRN PRN Reason: PAIN LEVEL 6-10 Last Admin: 04/10/18 14:37 Dose: 650 mg Docusate Sodium (Colace -) 100 mg PO BID PRN PRN Reason: CONSTIPATION Last Admin: 04/10/18 09:23 Dose: 100 mg Piperacillin Sod/Tazobactam (Sod 3.375 gm/ Dextrose) 50 mls @ 100 mls/hr IVPB Q8H-IV LILIANE PRN Reason: Protocol Last Admin: 04/10/18 09:23 Dose: 100 mls/hr Oxycodone HCl (Roxicodone -) 10 mg PO Q4H PRN PRN Reason: PAIN LEVEL 6-10 Last Admin: 04/10/18 14:37 Dose: 10 mg Pantoprazole Sodium (Protonix -) 40 mg PO DAILY L[facility] Last Admin: 04/10/18 09:23 Dose: 40 mg - Objective Vital Signs: Vital Signs Temperature 98.5 F 04/10/18 14:00 Pulse Rate 75 04/10/18 14:00 Respiratory Rate 20 04/10/18 14:00 Blood Pressure 131/75 04/10/18 14:00 O2 Sat by Pulse Oximetry (%) 100 04/10/18 09:00 Constitutional: Yes: No Distress, Calm, Obese Eyes: Yes: Conjunctiva Clear, EOM Intact HENT: Yes: Atraumatic, Normocephalic Musculoskeletal: No: Joint Stiffness, Joint Swelling Extremities: No: Cool, Cyanosis, Erythema (erythema around wound resolved) Edema: No Integumentary: Yes: Incision (r axillary with Dub[place] intact), Tattoos. No: Erythema (redness around wound essentially resolved), Rash Wound/Incision: Yes: Dressing Dry and Intact, Dressing Removed (wound clean, no purulent drainage, Dub[place] moves easily), Draining (dried on dressing - old serosang, scant drainage present), Unapproximated (two small counterincisions with Mason through both) Neurological: Yes: Alert, Oriented Psychiatric: Yes: Alert, Oriented Labs: Microbiology 04/09/18 15:45 Gram Stain - Final Axilla/Armpit - Right 04/08/18 09:50 Blood Culture - Preliminary Blood - Peripheral Venous NO GROWTH OBTAINED AFTER 48 HOURS, INCUBATION TO CONTINUE FOR 3 DAYS. 04/08/18 09:40 Blood Culture - Preliminary Blood - Peripheral Venous NO GROWTH OBTAINED AFTER 48 HOURS, INCUBATION TO CONTINUE FOR 3 DAYS. GS with PMNs and Few gram negative bacilli Cx pending Problem List - Problems (1) Hidradenitis suppurativa of right axilla Assessment/Plan: POD1 s/p I&D of right axillary abscess with Mason placement wound clean, drainage on dressing, but minimal to scant present redressed with gauze and tape pt with good shoulder movement pain controlled with oral meds f/u wound culture to guide home abx therapy continue antibiotics per ID she will NOT need VNS on discharge - instructions in d/c plan pt to f/u next Sunday for drain removal Code(s): L73.2 - HIDRADENITIS SUPPURATIVA (2) Abscess of right axilla Code(s): L02.411 - CUTANEOUS ABSCESS OF RIGHT AXILLA (3) Cellulitis of right axilla Assessment/Plan: antibiotics per ID, nearly resolved entirely Code(s): L03.111 - CELLULITIS OF RIGHT AXILLA (4) Obesity (BMI 35.0-39.9 without comorbidity) Code(s): E66.9 - OBESITY, UNSPECIFIED
--- NOTE | 2018-04-10 18:40 | PN ---
Progress Note, Physician - Current Medication List Current Medications: Active Medications Acetaminophen (Tylenol -) 650 mg PO Q6H PRN PRN Reason: FEVER Last Admin: 04/10/18 06:04 Dose: 650 mg Acetaminophen (Tylenol -) 650 mg PO Q4H PRN PRN Reason: PAIN LEVEL 6-10 Last Admin: 04/10/18 18:38 Dose: 650 mg Docusate Sodium (Colace -) 100 mg PO BID PRN PRN Reason: CONSTIPATION Last Admin: 04/10/18 09:23 Dose: 100 mg Piperacillin Sod/Tazobactam (Sod 3.375 gm/ Dextrose) 50 mls @ 100 mls/hr IVPB Q8H-IV LILIANE PRN Reason: Protocol Last Admin: 04/10/18 18:11 Dose: 100 mls/hr Oxycodone HCl (Roxicodone -) 10 mg PO Q4H PRN PRN Reason: PAIN LEVEL 6-10 Last Admin: 04/10/18 18:37 Dose: 10 mg Pantoprazole Sodium (Protonix -) 40 mg PO DAILY [facility] Last Admin: 04/10/18 09:23 Dose: 40 mg - Objective Vital Signs: Vital Signs Temperature 98.5 F 04/10/18 14:00 Pulse Rate 75 04/10/18 14:00 Respiratory Rate 20 04/10/18 14:00 Blood Pressure 131/75 04/10/18 14:00 O2 Sat by Pulse Oximetry (%) 100 04/10/18 09:00 Constitutional: Yes: No Distress HENT: Yes: Atraumatic Neck: Yes: Supple Cardiovascular: Yes: Regular Rate and Rhythm Respiratory: Yes: CTA Bilaterally Extremities: Yes: WNL, Other (R axilla wound dressing in place) Neurological: Yes: Alert, Oriented Labs: CBC, BMP 04/09/18 06:20 04/09/18 06:20 INR, PTT INR 1.19 (0.82-1.09) H 04/08/18 09:50 Problem List - Problems (1) Axillary hidradenitis suppurativa Assessment/Plan: iv abx s/p I and d Code(s): L73.2 - HIDRADENITIS SUPPURATIVA (2) Abscess Code(s): L02.91 - CUTANEOUS ABSCESS, UNSPECIFIED
[2018-04-11] MEDS ORDERED: PIPERACILLIN/TAZOBACTAM 3.375 GM VIAL IVPB ONE ×3 (00:13→18:11)
[2018-04-11] MEDS ORDERED: DEXTROSE 5%-WATER - 50 ML IVPB ONE ×3 (00:14→18:12)
[2018-04-11] MEDS: PIPERACILLIN/TAZOB 3.375 GM 3.375 GM in DEXTROSE 5%-WATER - 50 ML IVPB SCH ×3 (01:25→18:22)
[2018-04-11] MEDS: oxyCODONE HCL 5 MG TABLET PO PRN ×3 (02:19→16:04)
[2018-04-11] MEDS: ACETAMINOPHEN 325 MG TABLET (FP) PO PRN ×3 (02:19→16:04)
--- NOTE | 2018-04-11 09:58 | PN ---
Progress Note, Physician Chief Complaint: right axillary abscess History of Present Illness: 38 yo female PMH hidradenititis and obesity presents with a painful abscess right axilla. She has been improving since surgery. Afebrile and resolving swelling and pain. No acute events overnight. - Current Medication List Current Medications: Active Medications Acetaminophen (Tylenol -) 650 mg PO Q6H PRN PRN Reason: FEVER Last Admin: 04/11/18 07:39 Dose: 650 mg Acetaminophen (Tylenol -) 650 mg PO Q4H PRN PRN Reason: PAIN LEVEL 6-10 Last Admin: 04/10/18 22:22 Dose: 650 mg Docusate Sodium (Colace -) 100 mg PO BID PRN PRN Reason: CONSTIPATION Last Admin: 04/10/18 09:23 Dose: 100 mg Piperacillin Sod/Tazobactam (Sod 3.375 gm/ Dextrose) 50 mls @ 100 mls/hr IVPB Q8H-IV LILIANE PRN Reason: Protocol Last Admin: 04/11/18 01:25 Dose: 100 mls/hr Oxycodone HCl (Roxicodone -) 10 mg PO Q4H PRN PRN Reason: PAIN LEVEL 6-10 Last Admin: 04/11/18 07:38 Dose: 10 mg Pantoprazole Sodium (Protonix -) 40 mg PO DAILY [facility] Last Admin: 04/10/18 09:23 Dose: 40 mg - Objective Vital Signs: Vital Signs Temperature 98.9 F 04/11/18 06:00 Pulse Rate 67 04/11/18 06:00 Respiratory Rate 18 04/11/18 06:00 Blood Pressure 112/57 04/11/18 06:00 O2 Sat by Pulse Oximetry (%) 100 04/10/18 21:00 Vital Signs Period Temp Pulse Resp BP Sys/Patterson Pulse Ox Last 24 Hr 98.1 F-98.9 F 63-75 18-20 112-135/57-90 100 Constitutional: Yes: Well Nourished, No Distress, Calm Eyes: Yes: Conjunctiva Clear, EOM Intact HENT: Yes: Atraumatic, Normocephalic Neck: Yes: Supple, Trachea Midline Cardiovascular: Yes: Regular Rate and Rhythm, S1, S2 Respiratory: Yes: Regular, CTA Bilaterally Gastrointestinal: Yes: Normal Bowel Sounds, Soft, Abdomen, Obese Edema: Yes Edema: RUE: Trace Peripheral Pulses WNL: Yes Wound/Incision: Yes: Clean/Dry, Dressing Removed, Unapproximated, Other (right axillary emma drain, minimal drainage.). No: Bleeding Neurological: Yes: Alert, Oriented Psychiatric: Yes: Alert, Oriented Labs: Microbiology 04/08/18 09:50 Blood - Peripheral Venous Blood Culture - Preliminary NO GROWTH OBTAINED AFTER 72 HOURS, INCUBATION TO CONTINUE FOR 2 DAYS. 04/08/18 09:40 Blood - Peripheral Venous Blood Culture - Preliminary NO GROWTH OBTAINED AFTER 72 HOURS, INCUBATION TO CONTINUE FOR 2 DAYS. 04/09/18 15:45 Axilla/Armpit - Right Gram Stain - Final 04/08/18 09:55 Urine - Urine Clean Catch Urine Culture - Final Problem List - Problems (1) Abscess of right axilla Assessment/Plan: 38yo female POD#2 s/p I&D of right axillary abscess with Emma placement. wound clean, dressing replaced, reduced local inflammation and improved pain. Normal shoulder movement. Repeat CBC f/u wound culture to guide home antibiotics therapy continue antibiotics per ID she will NOT need VNS on discharge - instructions in d/c plan pt to f/u next Sunday for drain removal Code(s): L02.411 - CUTANEOUS ABSCESS OF RIGHT AXILLA (2) Axillary hidradenitis suppurativa Code(s): L73.2 - HIDRADENITIS SUPPURATIVA (3) Obesity (BMI 35.0-39.9 without comorbidity) Code(s): E66.9 - OBESITY, UNSPECIFIED
[2018-04-11] MEDS: PANTOPRAZOLE 40 MG TABLET (FP) PO SCH (10:28)
[2018-04-11 11:35] LABS: BASO % 1.4 % (0-2.0); EOS % 1.3 % (0-4.5); HEMATOCRIT 31.5 % (32.4-45.2); HEMOGLOBIN 10.3 GM/dL (10.7-15.3); LYMPH % 35.9 % (8-40); MCH 28.2 pg (25.7-33.7); MCHC 32.6 g/dl (32.0-36.0); MEAN CELL VOLUME 86.6 fl (80-96); MONO % 5.6 % (3.8-10.2); NEUT % 55.8 % (42.8-82.8); PLATELET COUNT 216 K/MM3 (134-434); RBC 3.63 M/mm3 (3.60-5.2); RDW 13.6 % (11.6-15.6); WHITE BLOOD COUNT 12.6 K/mm3 (4.0-10.0)
[2018-04-11] MEDS ORDERED: PT OWN MED DRAWER 7, Y5N ONE (13:47)
--- NOTE | 2018-04-11 14:37 | PN ---
Progress Note, Physician History of Present Illness: patient stable wbc has trended down drain in place patient comfortable - Current Medication List Current Medications: Active Medications Acetaminophen (Tylenol -) 650 mg PO Q6H PRN PRN Reason: FEVER Last Admin: 04/11/18 07:39 Dose: 650 mg Acetaminophen (Tylenol -) 650 mg PO Q4H PRN PRN Reason: PAIN LEVEL 6-10 Last Admin: 04/10/18 22:22 Dose: 650 mg Docusate Sodium (Colace -) 100 mg PO BID PRN PRN Reason: CONSTIPATION Last Admin: 04/10/18 09:23 Dose: 100 mg Piperacillin Sod/Tazobactam (Sod 3.375 gm/ Dextrose) 50 mls @ 100 mls/hr IVPB Q8H-IV LILIANE PRN Reason: Protocol Last Admin: 04/11/18 10:28 Dose: 100 mls/hr Oxycodone HCl (Roxicodone -) 10 mg PO Q4H PRN PRN Reason: PAIN LEVEL 6-10 Last Admin: 04/11/18 07:38 Dose: 10 mg Pantoprazole Sodium (Protonix -) 40 mg PO DAILY [facility] Last Admin: 04/11/18 10:28 Dose: 40 mg - Objective Vital Signs: Vital Signs Temperature 98.9 F 04/11/18 06:00 Pulse Rate 67 04/11/18 06:00 Respiratory Rate 18 04/11/18 06:00 Blood Pressure 112/57 04/11/18 06:00 O2 Sat by Pulse Oximetry (%) 100 04/10/18 21:00 Constitutional: Yes: No Distress, Calm, Obese Cardiovascular: Yes: Regular Rate and Rhythm Respiratory: Yes: Regular, CTA Bilaterally Gastrointestinal: Yes: Normal Bowel Sounds, Soft Musculoskeletal: Yes: WNL Extremities: Yes: WNL Wound/Incision: Yes: Dressing Dry and Intact, Other (drain in place) Neurological: Yes: Alert, Oriented Psychiatric: Yes: Alert, Oriented Labs: CBC, BMP 04/11/18 10:45 04/09/18 06:20 INR, PTT INR 1.19 (0.82-1.09) H 04/08/18 09:50 Assessment/Plan Problem List - Problems (1) Hidradenitis suppurativa of right axilla Code(s): L73.2 - HIDRADENITIS SUPPURATIVA (2) Abscess of right axilla Code(s): L02.411 - CUTANEOUS ABSCESS OF RIGHT AXILLA (3) Cellulitis of right axilla Code(s): L03.111 - CELLULITIS OF RIGHT AXILLA (4) Obesity (BMI 35.0-39.9 without comorbidity) Code(s): E66.9 - OBESITY, UNSPECIFIED plan post op doing well continue abx cx report noted wbc has trended down patient can be switched to oral augmentin 875 mg bid for another 5 days needs to follow up with surgery
[2018-04-11 14:47] VITALS: BP 125/61; PULSE 60; TEMP 98.5
--- NOTE | 2018-04-11 18:20 | DS ---
Physical Examination Vital Signs: Vital Signs Temperature 98.5 F 04/11/18 14:00 Pulse Rate 60 04/11/18 14:00 Respiratory Rate 20 04/11/18 14:00 Blood Pressure 125/61 04/11/18 14:00 O2 Sat by Pulse Oximetry (%) 100 04/11/18 09:00 Constitutional: Yes: No Distress HENT: Yes: Atraumatic Neck: Yes: Supple Cardiovascular: Yes: Regular Rate and Rhythm Respiratory: Yes: CTA Bilaterally Gastrointestinal: Yes: Normal Bowel Sounds Extremities: Yes: Other (R axilla dressing intact) Neurological: Yes: Alert, Oriented Labs: CBC, BMP 04/11/18 10:45 04/09/18 06:20 Discharge Summary Reason For Visit: HIDRADENITIS SUPPURATIVA Current Active Problems Abscess of right axilla (Acute) Axillary hidradenitis suppurativa (Acute) Cellulitis of right axilla (Acute) Hidradenitis suppurativa of right axilla (Acute) Obesity (BMI 35.0-39.9 without comorbidity) (Acute) Condition: Stable - Instructions Diet, Activity, Other Instructions: Postoperative instructions: You had incision and drainage of right axillary abscess with drain placement on 04/09/[address] Reid Cho of [facility]. Activity: Resume your usual activities gradually, but no heavy exertion or lifting with right arm. You may shower daily with dressing off - move the rubber drain back and forth a bit through the wound tract while cleansing area. Just pat the incision area dry and keep covered with gauze and an absorbent pad as needed to collect drainage. Pain: For pain, you may use acetaminophen (Tylenol) 1-2 tabs every 4-6 hours as needed. If you are prescribed a Tylenol/narcotic combination for severe pain, use it instead of plain Tylenol only as needed and switch back when your pain starts decreasing. Do not take more than 4000mg of acetaminophen in a day. Take medications as prescribed or indicated on the labeling. Follow-up: Call Dr. Cho's office at [phone] to make your postop appointment (Sunday next week as advised). Clinic is held in the [facility] on the first floor of [facility]. Call the office if you have: * increasing pain not responsive to pain medication * fever of 101F or higher * vomiting * unusual or increasing bleeding or drainage from wounds * increasing redness or swelling at wound sites Also, see your primary medical doctor within 1-2 weeks. Referrals: Jeanna Liriano MD [Staff Physician] - Vitor Blount MD [Staff Physician] - Reid Cho MD [Staff Physician] - 1 Week Disposition: HOME - Home Medications Comprehensive Discharge Medication List: Ambulatory Orders Amoxicillin/Potassium Clav [Augmentin 875-125 Tablet] 1 each PO BID #14 tablet 04/10/18 ok home
== END 2018-04-11 19:27 | disposition home or self-care (01) | DRG 607 ==
LOC: JER 08:09 → JERBED 10:52 → OBSVTOIN 13:42 → J6S 13:58
PROVIDERS: ADMIT Internal Medicine; ATTEND Internal Medicine
PROC: 0X940ZX Drainage of Right Axilla, Open Approach, Diagnostic (ICD-10-PCS; principal; 2018-04-09 13:00)
DX: L73.2 Hidradenitis suppurativa (principal); L02.91 Cutaneous abscess, unspecified; F17.210 Nicotine dependence, cigarettes, uncomplicated; L03.111 Cellulitis of right axilla; E66.9 Obesity, unspecified; Z68.35 Body mass index [BMI] 35.0-35.9, adult; K21.9 Gastro-esophageal reflux disease without esophagitis
CPT/HCPCS: 36415; 80053; 81003; 81015; 82803; 83605; 84484; 84703; 85025; 85610; 85730; 87040; 87070; 87086; 87186; 87205; 93005; 93010; 94760; 99283-25; G0378; J0131; J7030

== ENCOUNTER 2018-06-17 13:29 | Emergency (ER) | payer OTHER ==
[2018-06-17 13:39] VITALS: BP 116/78; PULSE 91; TEMP 99.4; BMI 34.4
--- NOTE | 2018-06-17 14:21 | PDOC ---
History of Present Illness - General Chief Complaint: Pain, Acute Stated Complaint: RT ARM PAIN Time Seen by Provider: 06/17/18 13:45 - History of Present Illness Initial Comments: 06/17/18 13:51 CHIEF COMPLAINT: abscess HISTORY OF PRESENT ILLNESS: 38 yo F with hx of hidradenitis suppurativa presents to fast track with abscess to R axilla. Patient states she was started on Levaquin, metronidazole, and rifampin recently "but I haven't started taking the one with L yet because I felt like that was a lot of antibiotics." Patient reports severe pain to R axilla. Denies fever, chills, vomiting, diarrhea. PAST MEDICAL HISTORY: Denies past medical history FAMILY HISTORY: Denies SOCIAL HISTORY: Denies tobacco, alcohol, illicit drug use. SURGICAL HISTORY: Denies ALLERGIES: No known drug allergies REVIEW OF SYSTEMS General/Constitutional: Denies fever or chills. Denies weakness, weight change. HEENT: Denies change in vision. Denies ear pain or discharge. Denies sore throat. Cardiovascular: Denies chest pain or shortness of breath. Respiratory: Denies cough, wheezing, or hemoptysis. Gastrointestinal: Denies nausea, vomiting, diarrhea or constipation. Denies rectal bleeding. Genitourinary: Denies dysuria, frequency, or change in urination. Musculoskeletal: Denies joint or muscle swelling or pain. Denies neck or back pain. Skin: Recurrent abscess to R axilla. Neurologic: Denies headache, vertigo, loss of consciousness, or loss of sensation. PHYSICAL EXAM General Appearance: Well-appearing, appropriately dressed. No apparent distress. HEENT: EOMI, PERRLA. No conjunctival pallor. No photophobia, scleral icterus. Respiratory/Chest: Lungs CTAB. Cardiovascular: RRR. S1, S2. Gastrointestinal/Abdominal: Normal bowel sounds. Abdomen soft, non-distended. No tenderness or rebound tenderness. No organomegaly, pulsatile mass, guarding , hernia, hepatomegaly, splenomegaly. Musculoskeletal/Extremities: Normal inspection. FROM of all extremities, normal capillary refill. Pelvis Stable. No CVA tenderness. No tenderness to extremities, pedal edema, swelling, erythema or deformity. Integumentary: Induration to entire right axilla with fluctuant abscess to superior aspect of abscess, with purulent drainage. Otherwise appropriate color , dry, warm. 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 Fully oriented, alert. Appropriate mood/affect. Motor strength 5/5. No appreciable EOM palsy, facial droop or sensory deficit. Past History - Past Medical History Allergies/Adverse Reactions: Allergies Allergy/AdvReac Type Severity Reaction Status Date / Time No Known Drug Allergies Allergy Verified 06/17/18 13:36 Home Medications: Ambulatory Orders Levofloxacin [Levaquin] 500 mg PO TID 06/17/18 Rifampin [Rifadin -] 300 mg PO BID 06/17/18 Spironolactone 25 mg PO BID 06/17/18 metroNIDAZOLE [Flagyl -] 500 mg PO BID 06/17/18 GI Disorders: Yes (REFLUX) - Family Disease History Family Disease History: Diabetes: Mother - Immunization History Immunization Up to Date: Yes - Suicide/Smoking/Psychosocial Hx Smoking Status: Yes Smoking History: Current every day smoker Have you smoked in the past 12 months: Yes Number of Cigarettes Smoked Daily: 5 Information on smoking cessation initiated: No 'Breaking Loose' booklet given: 04/08/18 Hx Alcohol Use: No Drug/Substance Use Hx: No Substance Use Type: None Hx Substance Use Treatment: No *Physical Exam - Vital Signs Last Vital Signs Temp Pulse Resp BP Pulse Ox 99.4 F 91 H 16 116/78 100 06/17/18 13:36 06/17/18 13:36 06/17/18 13:36 06/17/18 13:36 06/17/18 13:36 Procedures - Consent Consent obtained: Verbal - Incision and Drainage I&D Site: Right: Axilla Anesthesia: 1% Lidocaine Volume(ml): 5 Blade Size: 11 Attempts: 1 Iodinated Packin/4 in (2 inches packed) Dressing: Yes (telfa, dry gauze, paper tape) Progress: 06/17/18 14:55 well tolerated. approximately 5 mL purulent drainage expressed, wound culture sent. Medical Decision Making - Medical Decision Making 06/17/18 14:33 38 yo F with hx of hidradenitis suppurativa presents to fast track with abscess to R axilla. -I&D performed, wound culture sent Discussed case with MD Gupta, fellow at derm MD Cruz's office, who states patient should continue current meds and f/u outpatient. Advised patient to take medications as prescribed and return in 2 days for wound check. Patient is to follow up with Dr. Cruz. Advised patient of signs and symptoms for return to ED. Patient verbalized understanding and agrees to plan. *DC/Admit/Observation/Transfer Diagnosis at time of Disposition: Hidradenitis suppurativa - Discharge Dispostion Disposition: HOME Condition at time of disposition: Good Decision to Admit order: No - Referrals - Patient Instructions Printed Discharge Instructions: Ciscoradenitis Suppurativa DI for Incision and Drainage of a Skin Abscess Additional Instructions: As discussed, please return in 2 days for wound check. Take all medications as prescribed by Dr. Cruz's office and complete the entire course of medication, even if your symptoms improve. Follow up with Dr. Cruz's office within the next week. If you develop fever, vomiting, diarrhea, chills, or any new or worsening symptoms, please return to the ER . - Post Discharge Activity
--- NOTE | 2018-06-27 07:43 | PDOC ---
Patient Follow-up (Call Back) - Post ED Follow - Up Condition at time of discharge: Good Disposition at time of original discharge: HOME Reason for Call Back: Abnwl. Microbiology (Wound culture shows enterococcus faecialis, Pseudomonas aeruginosa, alpha hemolytic streptococcus. Spoke to patient and states is on Levaquin and Flagyl still and symptoms have improved)
== END 2018-06-17 14:43 | disposition home or self-care (01) ==
LOC: JERFT 13:29
PROC: 0X940ZZ Drainage of Right Axilla, Open Approach (ICD-10-PCS; principal; 2018-06-17)
DX: L73.2 Hidradenitis suppurativa (principal)
CPT/HCPCS: 87070; 87077; 87186; 87205; 99281-25

== ENCOUNTER 2018-10-20 21:17 | Emergency (ER) | payer OTHER ==
[2018-10-20 21:30] VITALS: BP 134/76; PULSE 89; TEMP 99; BMI 36.0
--- NOTE | 2018-10-20 21:54 | PDOC ---
Attending Attestation - HPI HPI: 10/20/18 23:04 The patient is a 38 year old female with a past medical history of GERD here today for evaluation of left upper back pain. The patient reports waking up this morning and feeling like she pulled a muscle. She reports the pain is worse with deep breaths and with any motion and radiated about longterm down her ribcage. The patient notes that heat therapy, vicks, and zeb muscle and joints did not help with her pain. Patient denies headache, lightheadedness. Denies fever, chills. Denies chest pain, shortness of breath. Denies nausea, vomiting, diarrhea, abdominal pain. Denies lower extremity edema. Denies urinary symptoms. Denies neurologic symptoms. Allergies: NKDA Surgical history: none reported PCP: none reported <Jarrell Ward - Last Filed: 10/20/18 23:04> - Physicial Exam PE: 10/21/18 00:28 Agree with resident exam. Patient is alert and oriented and in no acute distress. Lungs are clear. Heart has regular rate and rhythm. + tenderness to palpation over the trapezius muscle. - Medical Decision Making 10/21/18 00:39 Pt presents to the ED complaining of sharp, pleuritic, chest and upper back pain. HEART score is 0. PERC negative. CXR is negative for acute pathology. Most likely muscular pain. Will treat with motrin and discharge home. <Ruma Sims - Last Filed: 10/21/18 00:43>
[2018-10-20] MEDS ORDERED: ACETAMINOPHEN 500 MG TABLET (FP) PO ONE (22:01)
--- NOTE | 2018-10-20 22:08 | PDOC ---
History of Present Illness - General Chief Complaint: Back Pain Stated Complaint: DIFFICULTY BREATHING,MUSCLE PAIN Time Seen by Provider: 10/20/18 21:51 History Source: Patient Exam Limitations: No Limitations - History of Present Illness Initial Comments: 10/20/18 22:02 38 YOF with h/o hydradenitis suppurative on Humira injection weekly with prior axillary sweat gland removal, GERD not requiring medication, and prior , who p/w left thoacic back pain radiating to her left anterior chest up to and present persistently since awakening this morning at 9 am, worse with deep breathing. She does not recall having slept strangely and has no idea what may have brought this on. She has had much milder similar pain in the past but never this bad or long-lasting, never bad enough to prompt her to be seen medically. She denies any headache, neck pain, lightheadedness, vertigo, vision change, SOB, cough, runny nose, sore throat, diaphoresis, arm pain, abdominal pain, palpitations, f/c/n/v/d/c, dysuria, vaginal discharge, or other symptoms. LMP just ended and was normal, denies chance of being , no recent falls or injuries. She took #2 full strength ASA, tried hot pack, nothing has worked. Past History - Past Medical History Allergies/Adverse Reactions: Allergies Allergy/AdvReac Type Severity Reaction Status Date / Time No Known Drug Allergies Allergy Verified 06/17/18 13:36 Home Medications: Ambulatory Orders Levofloxacin [Levaquin] 500 mg PO TID 06/17/18 Rifampin [Rifadin -] 300 mg PO BID 06/17/18 Spironolactone 25 mg PO BID 06/17/18 metroNIDAZOLE [Flagyl -] 500 mg PO BID 06/17/18 Ibuprofen [Motrin -] 800 mg PO TID #21 tablet 10/21/18 Methocarbamol [Robaxin -] 500 mg PO TID #21 tablet 10/21/18 COPD: No GI Disorders: Yes (REFLUX) - Family Disease History Family Disease History: Diabetes: Mother - Immunization History Immunization Up to Date: Yes - Suicide/Smoking/Psychosocial Hx Smoking Status: Yes Smoking History: Current every day smoker Have you smoked in the past 12 months: Yes Number of Cigarettes Smoked Daily: 10 Information on smoking cessation initiated: No 'Breaking Loose' booklet given: 04/08/18 Hx Alcohol Use: No Drug/Substance Use Hx: No Substance Use Type: None Hx Substance Use Treatment: No Review of Systems - Review of Systems Able to Perform ROS?: Yes Comments:: 10/20/18 22:08 GEN: no fever, chills, malaise, generalized weakness, or weight change HEENT: no ear pain, sore throat, vision change, or eye pain CV: left chest wall pain, no palpitations, lightheadedness, syncope, or edema RESP: no cough, wheezing, or SOB GI: no abdominal pain, nausea, vomiting, diarrhea, constipation, or white/black/ bloody stool : no dysuria, hematuria, incontinence, retention, bleeding, or discharge MSK: left upper back pain, no neck pain, otherwise no muscle weakness/pain, or joint swelling/pain NEURO: no headache, seizure, vertigo, numbness, tingling, or focal weakness PSYCH: no substance use, no behavior change SKIN: no jaundice, no rash ROS otherwise negative except as noted in HPI *Physical Exam - Vital Signs Last Vital Signs Temp Pulse Resp BP Pulse Ox 99 F 89 20 134/76 99 10/20/18 21:22 10/20/18 21:22 10/20/18 21:22 10/20/18 21:22 10/20/18 21:22 10/20/18 22:09 GENERAL: alert, oriented, well-appearing adult female who is comfortable at rest , accompanied by her daughter, answers questions appropriately, uncomfortable appearing on repositioning or removing her coat for exam HEENT: PERRLA, EOMI, moist mucous membranes NECK/BACK: moderate left paraspinous ttp and left trapezius ttp extending from about T1 to T8, no midline ttp, no spinal stepoff or deformity, no costal stepoff or deformity, no subcutaneous emphysema or crepitus, no hematoma, full ROM, neck supple CHEST WALL: tattoo noted left anterior chest wall, mild tenderness to compression of left anterior chest wall, no skin changes, no costal stepoff or deformity, no subcutaneous emphysema or crepitus CARDIOVASCULAR: regular rate/rhythm, normal S1S2, no MGR, strong peripheral pulses, capillary refill <2 seconds, extremities wwp, no edema LUNGS/RESPIRATORY: no respiratory distress, CTAB, no decreased breath sounds in any field GI/ABDOMEN: obese, symmetric [id number], normoactive BS, soft, no ttp, no midline pulsatile masses : no CVA tenderness EXTREMITIES: no muscle atrophy, no acute deformity, no edema SKIN: posterior neck with acanthosis nigricans, warm and dry, no pallor, no jaundice, no rash, no bruising, no skin breakdown, no cuts, no lesions NEUROLOGICAL: GCS 15, CN II-XII grossly intact, 5/5 strength proximally and distally, no facial droop Heart Score/ECG Review #1 10/20/18 23:59 Sinus rhythm, rate 59, normal axis/intervals, TWF in III, no ischemic ST-T changes ED Treatment Course - LABORATORY CBC & Chemistry Diagram: 10/20/18 22:14 10/20/18 22:14 - RADIOLOGY Radiology Studies Ordered: Category Date Time Status CHEST PA & LAT [RAD] Stat Radiology 10/20/18 22:01 Ordered Medical Decision Making - Medical Decision Making 10/20/18 22:12 Adult Pt p/w left upper back pain and left chest pain. Initial Vital Signs Temp Pulse Resp BP Pulse Ox 99 F 89 20 134/76 99 10/20/18 21:22 10/20/18 21:22 10/20/18 21:22 10/20/18 21:22 10/20/18 21:22 Exam: As noted in Physical Exam section. DDX IBNLT: most likely muscle spasm, strain, sprain, or costochondritis, but very important to r/o PNA (especially since the patient is on Humira), ACS ( especially given smoking history and obesity), PUD, gastritis, cholecystitis, cholangitis, pancreatitis, pericarditis, PTX, PE (patient is low risk on PERC criteria), esophageal stricture, esophageal FB, colitis, pleurisy, pleuritis, MVP, panic/anxiety, etc. I am not concerned for tamponade, aortic dissection, AAA, or bowel perforation. W/U ordered: CBCD CMP Mg Phos Lipase Troponin CK CKMB UA UCx hCG EKG CXR. TX ordered: Tylenol 975 to start EKG: Reviewed; results as noted in ECG Review section. Laboratory Tests 10/20/18 10/20/18 10/20/18 22:14 22:14 22:14 WBC 14.8 H RBC 4.25 Hgb 12.8 Hct 36.2 MCV 85.0 MCH 30.1 MCHC 35.3 RDW 13.8 Plt Count 244 MPV 9.9 Absolute Neuts (auto) 9.5 H Neutrophils % 64.6 Lymphocytes % 28.8 Monocytes % 4.4 Eosinophils % 1.2 Basophils % 1.0 Nucleated RBC % 0 Sodium 140 Potassium 4.0 Chloride 108 H Carbon Dioxide 27 Anion Gap 6 L BUN 13 Creatinine 0.9 Creat Clearance w eGFR > 60 Random Glucose 107 H Calcium 8.6 Total Bilirubin 0.1 L AST 25 ALT 31 Alkaline Phosphatase 92 Creatine Kinase 177 Creatine Kinase Index 1.4 CK-MB (CK-2) 2.5 Troponin I < 0.02 Total Protein 7.3 Albumin 3.3 L Lipase 112 Urine Color Yellow Urine Appearance Slcloudy Urine pH 5.0 Ur Specific [place] 1.031 Urine Protein Negative Urine Glucose (UA) Negative Urine Ketones Trace H Urine Blood Negative Urine Nitrite Negative Urine Bilirubin Negative Urine Urobilinogen Negative Ur Leukocyte Esterase Negative Urine HCG, Qual Negative 10/20/18 23:38 Reassessment: Patient appears a bit more comfortable, walking without issue to ED XR room. She has gotten Motrin 800mg in addition to the Tylenol. DISCHARGE Repeat cardiac enzymes are negative. No new abnormal rhythms have been observed on the security monitor. On last reassessment VS are stable, Pts pain is resolved, and exam is benign. The Pts HEART score indicates they are low risk and do not require admission currently. The Pt is appropriate for discharge with close outpatient follow up. They are comfortable with this plan and will follow up with their primary care provider in 1-3 days. E-Rx for Motrin and Robaxin sent to her pharmacy and she is counseled on safe Robaxin use. Specific return precautions are discussed and they will come back to the ER if necessary. *DC/Admit/Observation/Transfer Diagnosis at time of Disposition: Back pain Qualifiers: Back pain location: thoracic back pain Chronicity: acute Back pain laterality: left Qualified Code(s): M54.6 - Pain in thoracic spine - Discharge Dispostion Disposition: HOME Condition at time of disposition: Stable Decision to Admit order: No - Prescriptions Prescriptions: Ibuprofen [Motrin -] 800 mg PO TID #21 tablet Methocarbamol [Robaxin -] 500 mg PO TID #21 tablet - Referrals Referrals: [facility] [place] [Provider Group] - Patient Instructions Additional Instructions: You were seen in the ER for left upper back pain. We did laboratory work on your blood and urine, as well as imaging studies, and we did not and we did not find any concerning abnormalities. Your symptoms improved with the medications we gave you in the ER. After our assessment, we do not believe you are having a medical emergency at this time, and we believe you are safe to go home. Please follow up with your primary care provider in 1-3 days. Call their clinic as soon as possible, tell them you were seen in the ER, and tell them you need an appointment. Take Motrin and Tylenol for the pain, and use a heating pad. If you have any new or worsening symptoms please come back to the ER at any time ( 24 hours a day), especially for chest pain or difficulty breathing, neck pain, fever, new numbness new tingling, new weakness, new urinary or bowel incontinence or retention, or other new symptoms. If you are having severe or life threatening symptoms, or symptoms that make it unsafe to drive or have someone drive you, please call 911. 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 If you take the Robaxin, do not drive or operate heavy machinery - you may become drowsy. - Post Discharge Activity Forms/Work/School Notes: Back to Work
[2018-10-20] MEDS ORDERED: ACETAMINOPHEN 325 MG TABLET (FP) ONE (22:26)
[2018-10-20 22:37] LABS: EOS % 1.2 % (0-4.5); HEMATOCRIT 36.2 % (32.4-45.2); HEMOGLOBIN 12.8 GM/dL (10.7-15.3); LYMPH % 28.8 % (8-40); MCH 30.1 pg (25.7-33.7); MCHC 35.3 g/dl (32.0-36.0); MEAN PLT VOLUME 9.9 fl (7.5-11.1); MONO % 4.4 % (3.8-10.2); NEUT % 64.6 % (42.8-82.8); PLATELET COUNT 244 K/MM3 (134-434); RBC 4.25 M/mm3 (3.60-5.2); RDW 13.8 % (11.6-15.6); WHITE BLOOD COUNT 14.8 K/mm3 (4.0-10.0)
[2018-10-20 22:48] LABS: URINE APPEARANCE SLCLOUDY; URINE BILIRUBIN NEGATIVE (<2.0 mg/dL); URINE COLOR YELLOW; URINE GLUCOSE (UA) NEGATIVE (NEGATIVE); URINE KETONE TRACE (NEGATIVE); URINE LEUK ESTERASE NEGATIVE (NEGATIVE); URINE NITRITE NEGATIVE (NEGATIVE); URINE PROTEIN NEGATIVE (NEGATIVE); URINE UROBILINOGEN NEGATIVE mg/dL (0.2-1.0)
[2018-10-20 22:55] LABS: HCG,QUALITATIVE URINE Negative
[2018-10-20 23:02] LABS: ALBUMIN 3.3 g/dl (3.4-5.0); ALK PHOS 92 U/L (45-117); ANION GAP 6 MMOL/L (8-16); BILIRUBIN,TOTAL 0.1 mg/dL (0.2-1); BLOOD UREA NITROGEN 13 mg/dL (7-18); CALCIUM 8.6 mg/dL (8.5-10.1); CHLORIDE 108 mmol/L (98-107); CO2 27 mmol/L (21-32); CREATININE 0.9 mg/dL (0.55-1.3); GLUCOSE,RANDOM 107 mg/dL (74-106); LIPASE 112 U/L (73-393); SGOT/AST 25 U/L (15-37); SGPT/ALT 31 U/L (13-61); SODIUM 140 mmol/L (136-145); TOT PROT 7.3 g/dl (6.4-8.2)
[2018-10-20] MEDS ORDERED: IBUPROFEN 400 MG TABLET (FP) PO ONE ×2 (23:17→23:23)
--- NOTE | 2018-10-21 10:55 | EKG ---
Test Reason : Blood Pressure : / mmHG Vent. Rate : 059 BPM Atrial Rate : 059 BPM P-R Int : 186 ms QRS Dur : 078 ms QT Int : 446 ms P-R-T Axes : 020 050 039 degrees QTc Int : 441 ms SINUS BRADYCARDIA OTHERWISE NORMAL ECG WHEN COMPARED WITH ECG OF 08-APR-2018 14:57, NO SIGNIFICANT CHANGE WAS FOUND Confirmed by JORGE A FRASER MD ([id number]) on 10/21/2018 10:54:37 AM Referred By: Confirmed By:JORGE A FRASER MD
== END 2018-10-21 00:10 | disposition home or self-care (01) ==
LOC: JER 21:17
DX: M54.6 Pain in thoracic spine (principal); K21.9 Gastro-esophageal reflux disease without esophagitis; Z87.2 Personal history of diseases of the skin and subcutaneous tissue
CPT/HCPCS: 36415; 71046-TC-FY; 80053; 81003; 82550; 82553; 83690; 84484; 84703; 85025; 87077; 87086; 93005; 93010; 99283-25

== ENCOUNTER 2019-01-03 09:08 | Emergency (ER) | payer OTHER ==
[2019-01-03 09:32] VITALS: BP 111/62; PULSE 90; TEMP 98.5; BMI 35.2
[2019-01-03] MEDS ORDERED: KETOROLAC TROMETHAMINE 60 MG/2 ML VIAL IM ONE (09:38)
[2019-01-03] MEDS ORDERED: KETOROLAC TROMETHAMINE 60 MG/2 ML VIAL ONE (09:53)
--- NOTE | 2019-01-03 10:16 | PDOC ---
History of Present Illness - General Stated Complaint: PAIN Time Seen by Provider: 01/03/19 09:37 History Source: Patient Exam Limitations: No Limitations - History of Present Illness Initial Comments: 01/03/19 10:16 38-year-old female presents to ED with complaints of left-sided chest achiness worsened with movement. Patient states 3 days ago was lifting a box of books and felt a sharp pain while lifting and since then has continued with pain. Patient states has taken Flexeril and Motrin with moderate improvement but states pain still continues. Patient denies shortness of breath, palpitations, dizziness nausea or weakness. Patient states does smoke has had recent travel or surgery, take exogenous estrogen, or has history of anticoagulation disorders. patient denies medical history Timing/Duration: other Severity: mild, moderate Associated Symptoms: reports: other Past History - Travel Traveled outside of the country in the last 30 days: No Close contact w/someone who was outside of country & ill: No - Past Medical History Allergies/Adverse Reactions: Allergies Allergy/AdvReac Type Severity Reaction Status Date / Time No Known Drug Allergies Allergy Verified 01/03/19 09:27 Home Medications: Ambulatory Orders Ibuprofen [Motrin -] 800 mg PO TID #21 tablet 10/21/18 Cyclobenzaprine HCl [Flexeril -] 10 mg PO TID 01/03/19 GI Disorders: Yes (REFLUX) - Family Disease History Family Disease History: Diabetes: Mother - Immunization History Immunization Up to Date: Yes - Suicide/Smoking/Psychosocial Hx Smoking Status: Yes Smoking History: Unknown if ever smoked Have you smoked in the past 12 months: Yes Number of Cigarettes Smoked Daily: 5 'Breaking Loose' booklet given: 04/08/18 Hx Alcohol Use: No Drug/Substance Use Hx: No Substance Use Type: None Hx Substance Use Treatment: No Patient Lives Alone: No Lives with/in: spouse/SO Review of Systems - Review of Systems Able to Perform ROS?: No Constitutional: No: Symptoms Reported Respiratory: No: Symptoms reported Cardiac (ROS): No: Symptoms Reported : No: Symptoms Reported Musculoskeletal: Yes: Muscle Pain Integumentary: No: Symptoms Reported Neurological: No: Symptoms reported Endocrine: No: Symptoms Reported Hematologic/Lymphatic: No: Symptoms Reported *Physical Exam - Vital Signs Last Vital Signs Temp Pulse Resp BP Pulse Ox 98.5 F 90 18 111/62 100 01/03/19 09:29 02/08/19 09:29 01/03/19 09:29 01/03/19 09:29 01/03/19 09:29 - Physical Exam General Appearance: Yes: Nourished, Appropriately Dressed. No: Apparent Distress Neck: positive: Supple Respiratory/Chest: positive: Lungs Clear, Normal Breath Sounds. negative: Respiratory Distress, Accessory Muscle Use Gastrointestinal/Abdominal: positive: Soft. negative: Tenderness Integumentary: positive: Normal Color, Warm, Moist Neurologic: positive: Motor Strength 5/5 (ambulatory) Moderate Sedation - Procedure Monitoring Vital Signs: Procedure Monitoring Vital Signs Temperature 98.5 F 01/03/19 09:29 Pulse Rate 90 01/03/19 09:29 Respiratory Rate 18 01/03/19 09:29 Blood Pressure 111/62 01/03/19 09:29 O2 Sat by Pulse Oximetry (%) 100 01/03/19 09:29 Medical Decision Making - Medical Decision Making 01/03/19 10:00 CC: Left pectoral muscle strain Exam: noted left pectoralis muscle tenderness Plan: toradol IM and EKG. 01/03/19 10:23 Pt states relief w/ med. Pt was given flexeril from urgent care yesterday along w/ motrin but states s/s continued. Pt recommended to take tylenol ES alternating *DC/Admit/Observation/Transfer Diagnosis at time of Disposition: Pectoralis muscle strain - Discharge Dispostion Disposition: HOME Condition at time of disposition: Improved - Referrals Referrals: Nico Trivedi MD [Primary Care Provider] - - Patient Instructions Printed Discharge Instructions: DI for Muscle Strain Additional Instructions: Please take tylenol ES for pain alternating with Motrin. - Post Discharge Activity
--- NOTE | 2019-01-03 13:15 | EKG ---
Test Reason : Blood Pressure : / mmHG Vent. Rate : 084 BPM Atrial Rate : 084 BPM P-R Int : 166 ms QRS Dur : 086 ms QT Int : 392 ms P-R-T Axes : 025 039 025 degrees QTc Int : 463 ms NORMAL SINUS RHYTHM NORMAL ECG WHEN COMPARED WITH ECG OF 20-OCT-2018 23:59, NO SIGNIFICANT CHANGE WAS FOUND Confirmed by CLARKE LIRA MD ([id number]) on 01/03/2019 1:15:04 PM Referred By: Confirmed By:CLARKE LIRA MD
== END 2019-01-03 10:35 | disposition home or self-care (01) ==
LOC: JER 09:08
DX: S29.011A Strain of muscle and tendon of front wall of thorax, initial encounter (principal); X50.0XXA Overexertion from strenuous movement or load, initial encounter; Y93.89 Activity, other specified; Y92.89 Other specified places as the place of occurrence of the external cause; Y99.8 Other external cause status
CPT/HCPCS: 93005; 93010; 99281-25

== ENCOUNTER 2019-02-13 08:26 | Emergency (ER) | payer OTHER ==
[2019-02-13 08:36] VITALS: BMI 34.4
[2019-02-13] MEDS ORDERED: FAMOTIDINE 20 MG/50 ML IVPB 20 MG/50 ML MG IVPB ONE ×2 (09:12→10:30)
[2019-02-13] MEDS ORDERED: LIDOCAINE VISCOUS 2% ORAL/TOP 20 ML UNIT-DOSE CUP MM ONE (09:12)
[2019-02-13] MEDS ORDERED: MAG HYDROX/AL HYDROX/SIMETH -MYLANTA- ORAL SUSPENSION PO ONE (09:12)
--- NOTE | 2019-02-13 09:22 | PDOC ---
Attending Attestation - Resident Resident Name: Sainya Bustamante - ED Attending Attestation I have performed the following: I have examined & evaluated the patient, The case was reviewed & discussed with the resident, I agree w/resident's findings & plan, Exceptions are as noted - HPI HPI: 02/13/19 09:20 39y F hx of hydranitis suppurativa, GERD presents with R sided chest pain. The pt notes the pain has been constant, for the psat 4 days, started gradually, is non radiating. Pt notes it hurts when she is moving around (ie: sitting/laying down), moving around her R arm. pt denies any recent heavy lifting/trauma, but notes she did strain her L back a few weeks ago. Pt takes motrin a few times a day with improvement of her pain. pt denie sany sob, fever/chills, cough, n/v, diaphoresis, leg swelling, hemptysis. no prior hitsory of this pain in the past. The pain is non exertional. pt endorses having drainage from under her R arm recently - had seen derm and i sbeing treated. pt deines recreational drug use GENERAL: The patient is awake, alert, and fully oriented, Nontoxic - in no acute distress. HEAD: Normocephalic, atraumatic. EYES: extraocular movements intact, sclera anicteric, conjunctiva clear. ENT: Normal voice, Moist mucous membranes. CHEST: Breath sounds equal, clear to auscultation bilaterally. No wheezes, no rhonchi, no rales. mild ttp to R pectoralis, +pain exacerbated with R shoulder extension/pressing motion HEART: Regular rate and rhythm, normal S1 and S2 without murmur, rub or gallop. ABDOMEN: Soft, nontender, normoactive bowel sounds. No guarding, no rebound. . No CVA tenderness EXTREMITIES: Normal range of motion, no edema. multiple tender nodules under her R arm with mild erythema, no active discharge, but her dressing is moist, not foul smelling, slightly warm to touch. NEUROLOGICAL: No facial assymetry, Normal speech, PSYCH: Normal mood, normal affect. SKIN: Warm, Dry, normal turgor, suspect muscular cuase of her pain as it is reproducible to direct palpation as well as on anterior extension of her R arm will ck basic labs will give pepcid/maalox, will give toradol will reasess - Physicial Exam PE: 02/13/19 17:55 see above - Medical Decision Making 02/13/19 11:53 The patients lab work was reviwed noted with WBC of 21 - suspec tthis may be secondary to her hydrantiis supperativa will have pt fu with PMD for furthe revaluation and recheck - will have her continue her abx 02/13/19 17:55 pt feeling improved, will have pt fu with her doctor for recheck of her leuckotysis dc with pmd fu return precautions were discused
--- NOTE | 2019-02-13 09:23 | PDOC ---
History of Present Illness - General Chief Complaint: Chest Pain Stated Complaint: CHEST PAIN Time Seen by Provider: 02/13/19 08:41 - History of Present Illness Initial Comments: Jolly Gabriel is a 39yo woman with a PMH of hydradenitis and GERD who presents reporting mid-sternal and right chest pain for several days. She states that initially she was hoping that the pain would just subside on its own , but it has not improved at all over time. She has been taking 400mg ibuprofen every 4-6 hours for the past few days without any significant improvement in her symptoms. The pain is severe, non-radiating, and constant. It gets worse when laying flat. There is no association with exertion or eating, though she states that she has had a poor appetite recently. She has no associated abdominal pain, left chest pain, diaphoresis, lightheadedness, or SOB though she does endorse a pleuritic component to the pain when trying to take a deep breath. She has had no recent cough or fever. Ms Gabriel does report that her heartburn has been "acting up" for the past month, and she has been taking Tums. She used to take a daily medication for GERD but did not think it necessary to continue. Past History - Past Medical History Allergies/Adverse Reactions: Allergies Allergy/AdvReac Type Severity Reaction Status Date / Time No Known Drug Allergies Allergy Verified 02/13/19 08:36 Home Medications: Ambulatory Orders Doxycycline Hyclate 100 mg PO BID 02/13/19 Levofloxacin [Levaquin] 500 mg PO DAILY 02/13/19 Nortriptyline HCl [Pamelor -] 10 mg PO HS 02/13/19 Rifampin [Rifadin] 300 mg PO BID 02/13/19 Spironolactone 25 mg PO DAILY 02/13/19 Tramadol HCl 50 mg PO QID PRN #12 tablet MDD 4 02/13/19 metroNIDAZOLE [Flagyl -] 500 mg PO DAILY 02/13/19 COPD: No GI Disorders: Yes (REFLUX) - Family Disease History Family Disease History: Diabetes: Mother - Immunization History Immunization Up to Date: Yes - Suicide/Smoking/Psychosocial Hx Smoking Status: Yes Smoking History: Current every day smoker Have you smoked in the past 12 months: Yes Number of Cigarettes Smoked Daily: 10 Information on smoking cessation initiated: Yes 'Breaking Loose' booklet given: 04/08/18 Hx Alcohol Use: No Drug/Substance Use Hx: No Substance Use Type: None Hx Substance Use Treatment: No Review of Systems - Review of Systems Comments:: General: No fevers, no chills, no weight or appetite change, no malaise HEENT: No changes in vision, no changes in hearing, no congestion, no sore throat CV: +sternal chest pain. No palpitations, no LE edema Pulm: No SOB, no cough, no wheezing GI: No nausea or vomiting, no change in bowel habits, no melena. +frequent heartburn : No frequency, no urgency, no dysuria Musc: No back pain, no joint swelling, no recent injury Skin: No rash, no lesions, no erythema Endo: No excessive thirst, no heat/cold intolerance Heme: No unusual bruising or bleeding, no swollen glands Neuro: No syncope, no numbness/tingling, no focal weakness Vasc: No claudication Psych: No recent change in mood, no SI or HI *Physical Exam - Vital Signs Last Vital Signs Temp Pulse Resp BP Pulse Ox 98.6 F 111 H 18 115/82 100 02/13/19 08:33 02/13/19 08:33 02/13/19 08:33 02/13/19 08:33 02/13/19 08:33 - Physical Exam Comments: General: Uncomfortable but in no acute distress HEENT: PERRL, EOMI, MMM, voice normal, normal neck ROM Cards: RRR, no murmur appreciated Pulm: Comfortable on room air, clear bilaterally Chest: TTP over sternum and right costo-sternal margin Abd: Soft, nontender, nondistended Ext: Atraumatic. No LE edema. ROM intact. Strength 5/5 and equal bilaterally Vasc: Extremities WWP Skin: Normal color, no rashes or lesions Neuro: A&Ox3, CN grossly intact, normal speech, motor/sensory grossly intact and symmetric Psych: Mood appropriate to situation Moderate Sedation - Procedure Monitoring Vital Signs: Procedure Monitoring Vital Signs Temperature 98.6 F 02/13/19 08:33 Pulse Rate 111 H 02/13/19 08:33 Respiratory Rate 18 02/13/19 08:33 Blood Pressure 115/82 02/13/19 08:33 O2 Sat by Pulse Oximetry (%) 100 03/21/19 08:33 ED Treatment Course - LABORATORY CBC & Chemistry Diagram: 02/13/19 10:22 02/13/19 10:22 - RADIOLOGY Radiology Studies Ordered: Category Date Time Status CHEST PA & LAT [RAD] Stat Radiology 02/13/19 09:11 Ordered Medical Decision Making - Medical Decision Making 02/13/19 09:14 Jolly Gabriel is a 39yo woman with a PMH of hydradenitis and GERD, not currently on H2 queenie or PPI, who presents with repoducible mid- and right- sternal chest pain for several days that worsens when laying down. There is no association with exertion or eating, no diaphoresis, lightheadedness, or abdominal pain. - Most likely secondary to known GERD. States heartburn has been "acting up" for the past month and treated at home with Tums - Will r/o cholecystitis, though unlikely as no abdominal pain. Unlikely pancreatitis without abdominal pain or vomiting. 02/13/19 10:58 - Continues to have pain, unchanged after GI cocktail and famotidine. Serum preg negative; toradol ordered for pain 02/13/19 11:55 - Labs reviewed. Notable for WBC 21. - Per chart review, has had leukocytosis into 20's secondary to her axillary abscess/cellulitis, but no sign of current infection on exam and no reported symptoms. Most likely due to known process - Sending UA to verify that there is no other source of infection 02/13/19 15:44 - UA resulted; no UTI - Discussed with Dr Eden. Will give tramadol for continued pain. However, pt noted to be sleeping comfortably twice when re-assessed - BP still 110. As ketones noted on UA, may be mildly dehydrated. Giving additional 1L bolus, will recheck vitals 02/13/19 17:12 - Repeat BP 129/75, HR 76 after 2nd L IVF - Feels improved, comfortable with home care instructions. Will d/c home with PMD follow up Seen with Dr Eden. Saniya Bustaamnte PGY1 *DC/Admit/Observation/Transfer Diagnosis at time of Disposition: Hidradenitis suppurativa, Nonspecific chest pain, Leukocytosis - Discharge Dispostion Disposition: HOME Condition at time of disposition: Stable Decision to Admit order: No - Prescriptions Prescriptions: Tramadol HCl 50 mg PO QID PRN #12 tablet MDD 4 PRN Reason: Pain - Referrals Referrals: Nico Trivedi MD [Primary Care Provider] - - Patient Instructions Printed Discharge Instructions: DI for Chest Pain Additional Instructions: Discharge Instructions: You were seen in the emergency department for right-sided chest pain. You had blood tests, an EKG, a chest xray, and a urine test sent. Your white blood cell count was high but as you have no sign of a new infection, this is most likely due to your known hydradenitis. Home Care and Follow Up: - You may use over the counter medications as needed for pain at home. 650- 1000mg acetaminophen (Tylenol) or 600mg ibuprofen (Motrin or Advil) can be used every 6-8 hours. If needed for continued pain, these medications may be alternated every 3-4 hours. For example, if you received ibuprofen at 9pm, you may take acetaminophen at midnight, ibuprofen at 3am, acetaminophen at 6am. - Consider buying a lidocaine patch (available at any pharmacy) that can be placed on the skin to help control your pain. This releases a numbing medication directly into the area that hurts most. The patch can be left on for 12 hours and then removed for 12 hours. - Try using an ice pack for 20 minutes every hour or a heating pad for additional pain control. These should NOT be used over the lidocaine patch, but you may place them over the areas of pain while the patch is off. - Do not stop moving around. As much as you can tolerate, continue to do light exercise and stretching exercises. Increase your activity level as much as you can tolerate daily. - If you continue to have frequent heartburn, try taking a daily medication such as Prevacid or Pepcid. These are available at any pharmacy. - If your pain does not improve over the next week, please see your primary doctor - Seek immediate medical care if you have significant worsening of your symptoms , you have difficulty breathing, you have chest pain with exercise, you develop fevers to 101F, or you have any other medical emergency. - Post Discharge Activity Forms/Work/School Notes: Back to Work
[2019-02-13] MEDS ORDERED: SODIUM CHLORIDE 0.9% 500 ML INFUS.BAG IV ONE ×2 (09:24→14:26)
[2019-02-13] MEDS ORDERED: LIDOCAINE VISCOUS 2% ORAL/TOP 20 ML UNIT-DOSE CUP ONE (10:29)
[2019-02-13] MEDS ORDERED: MAG HYDROX/AL HYDROX/SIMETH 30 ML UNIT-DOSE CUP ONE (10:30)
[2019-02-13 10:33] LABS: BASO % 0.7 % (0-2.0); EOS % 1.9 % (0-4.5); HEMATOCRIT 36.5 % (32.4-45.2); HEMOGLOBIN 12.3 GM/dL (10.7-15.3); LYMPH % 13.5 % (8-40); MCH 28.7 pg (25.7-33.7); MCHC 33.8 g/dl (32.0-36.0); MEAN CELL VOLUME 84.8 fl (80-96); MEAN PLT VOLUME 9.2 fl (7.5-11.1); MONO % 5.3 % (3.8-10.2); NEUT % 78.6 % (42.8-82.8); PLATELET COUNT 267 K/MM3 (134-434); RDW 14.5 % (11.6-15.6); WHITE BLOOD COUNT 21.2 K/mm3 (4.0-10.0)
--- NOTE | 2019-02-13 10:58 | PDOC ---
History of Present Illness - General Chief Complaint: Chest Pain Stated Complaint: CHEST PAIN Time Seen by Provider: 02/13/19 08:41 Past History - Past Medical History Allergies/Adverse Reactions: Allergies Allergy/AdvReac Type Severity Reaction Status Date / Time No Known Drug Allergies Allergy Verified 02/13/19 08:36 Home Medications: Ambulatory Orders Doxycycline Hyclate 100 mg PO BID 02/13/19 Levofloxacin [Levaquin] 500 mg PO DAILY 02/13/19 Nortriptyline HCl [Pamelor -] 10 mg PO HS 02/13/19 Rifampin [Rifadin] 300 mg PO BID 02/13/19 Spironolactone 25 mg PO DAILY 02/13/19 metroNIDAZOLE [Flagyl -] 500 mg PO DAILY 02/13/19 COPD: No GI Disorders: Yes (REFLUX) - Family Disease History Family Disease History: Diabetes: Mother - Immunization History Immunization Up to Date: Yes - Suicide/Smoking/Psychosocial Hx Smoking Status: Yes Smoking History: Current every day smoker Have you smoked in the past 12 months: Yes Number of Cigarettes Smoked Daily: 10 Information on smoking cessation initiated: Yes 'Breaking Loose' booklet given: 04/08/18 Hx Alcohol Use: No Drug/Substance Use Hx: No Substance Use Type: None Hx Substance Use Treatment: No *Physical Exam - Vital Signs Last Vital Signs Temp Pulse Resp BP Pulse Ox 98.6 F 111 H 18 115/82 100 02/13/19 08:33 02/13/19 08:33 02/13/19 08:33 02/13/19 08:33 02/13/19 09:30 Moderate Sedation - Procedure Monitoring Vital Signs: Procedure Monitoring Vital Signs Temperature 98.6 F 02/13/19 08:33 Pulse Rate 111 H 02/13/19 08:33 Respiratory Rate 18 02/13/19 08:33 Blood Pressure 115/82 02/13/19 08:33 O2 Sat by Pulse Oximetry (%) 100 02/13/19 09:30 ED Treatment Course - LABORATORY CBC & Chemistry Diagram: 02/13/19 10:22 02/13/19 10:22 - ADDITIONAL ORDERS Additional order review: Laboratory Results 02/13/19 10:22 Serum , Qual Negative - RADIOLOGY Radiology Studies Ordered: Category Date Time Status CHEST PA & LAT [RAD] Stat Radiology 02/13/19 09:11 Ordered - Medications Given in the ED: ED Medications Discontinued Medications Generic Name Dose Route Start Last Admin Trade Name Katherine PRN Reason Stop Dose Admin Al Hydroxide/Mg Hydroxide 30 ml 02/13/19 09:12 02/13/19 10:38 Mylanta Suspension - PO 02/13/19 09:13 30 ml ONCE ONE Administration Famotidine/Sodium Chloride 20 mg in 50 mls @ 100 mls/hr 02/13/19 09:12 10:38 Pepcid 20 Mg Premixed Ivpb - IVPB 02/13/19 09:41 100 mls/hr ONCE ONE Administration Lidocaine HCl 20 ml 02/13/19 09:12 02/13/19 10:38 Xylocaine 2% Viscous Oral - MM 02/13/19 09:13 20 ml ONCE ONE Administration Sodium Chloride 1,000 ml 02/13/19 09:24 02/13/19 10:38 Normal Saline - IV 02/13/19 09:25 1,000 ml ONCE ONE Administration Medical Decision Making - Medical Decision Making 02/13/19 10:58 Jolly Gabriel is a 39yo woman
[2019-02-13] MEDS ORDERED: KETOROLAC TROMETHAMINE 30 MG/1 ML VIAL IVPUSH ONE (11:00)
[2019-02-13] MEDS ORDERED: KETOROLAC TROMETHAMINE 30 MG/1 ML VIAL ONE (11:00)
[2019-02-13 11:49] LABS: ALBUMIN 3.3 g/dl (3.4-5.0); ALK PHOS 103 U/L (45-117); ANION GAP 7 MMOL/L (8-16); BILIRUBIN,TOTAL 0.6 mg/dL (0.2-1); BLOOD UREA NITROGEN 10 mg/dL (7-18); CALCIUM 9.1 mg/dL (8.5-10.1); CHLORIDE 104 mmol/L (98-107); CO2 26 mmol/L (21-32); CREATININE 0.8 mg/dL (0.55-1.3); GLUCOSE,RANDOM 93 mg/dL (74-106); LIPASE 171 U/L (73-393); PHOSPHOROUS 2.7 mg/dL (2.5-4.9); POTASSIUM 3.6 mmol/L (3.5-5.1); SGOT/AST 16 U/L (15-37); SGPT/ALT 21 U/L (13-61); SODIUM 137 mmol/L (136-145); TOT PROT 7.9 g/dl (6.4-8.2)
--- NOTE | 2019-02-13 12:03 | EKG ---
Test Reason : Blood Pressure : / mmHG Vent. Rate : 105 BPM Atrial Rate : 105 BPM P-R Int : 140 ms QRS Dur : 082 ms QT Int : 350 ms P-R-T Axes : 030 033 028 degrees QTc Int : 462 ms SINUS TACHYCARDIA POSSIBLE LEFT ATRIAL ENLARGEMENT BORDERLINE ECG WHEN COMPARED WITH ECG OF 03-JAN-2019 09:34, NONSPECIFIC T WAVE ABNORMALITY NO LONGER EVIDENT IN ANTERIOR LEADS Confirmed by RUPERT ESTEVEZ, SUSIE ([id number]) on 02/13/2019 12:03:12 PM Referred By: Confirmed By:SUSIE EMERY MD
[2019-02-13 13:26] LABS: ANISOCYTOSIS 2+; MACROCYTOSIS 0; PLATELET ESTIMATE NORMAL; TEAR DROP CELLS 1+
[2019-02-13] MEDS ORDERED: ACETAMINOPHEN 325 MG TABLET (FP) PO ONE (13:33)
[2019-02-13] MEDS ORDERED: ACETAMINOPHEN 325 MG TABLET (FP) ONE (14:12)
[2019-02-13 14:19] VITALS: TEMP 98.9
[2019-02-13] MEDS ORDERED: SODIUM CHLORIDE 1,000 ML IV ONE (14:21)
[2019-02-13] MEDS ORDERED: traMADol HCL 50 MG TABLET PO ONE (14:26)
[2019-02-13 14:57] LABS: EPI CELLS 5.1 /HPF (0-5); HYALINE CASTS 4 /hpf (0-8); URINE APPEARANCE CLEAR; URINE BACTERIA 109.242 /hpf (NEGATIVE); URINE BILIRUBIN 1+ (<2.0 mg/dL); URINE COLOR DK YELLOW; URINE GLUCOSE (UA) NEGATIVE (NEGATIVE); URINE KETONE TRACE (NEGATIVE); URINE LEUK ESTERASE 1+ (NEGATIVE); URINE NITRITE NEGATIVE (NEGATIVE); URINE PROTEIN NEGATIVE (NEGATIVE); URINE WBC 4 /hpf (0-5)
[2019-02-13] MEDS ORDERED: traMADol HCL 50 MG TABLET ONE (15:44)
[2019-02-13 17:21] VITALS: BP 129/75; PULSE 76
== END 2019-02-13 17:21 | disposition home or self-care (01) ==
LOC: JER 08:26
PROC: 3E0337Z Introduction of Electrolytic and Water Balance Substance into Peripheral Vein, Percutaneous Approach (ICD-10-PCS; principal; 2019-02-13)
PROC: 3E0333Z Introduction of Anti-inflammatory into Peripheral Vein, Percutaneous Approach (ICD-10-PCS; 2019-02-13)
PROC: 3E033GC Introduction of Other Therapeutic Substance into Peripheral Vein, Percutaneous Approach (ICD-10-PCS; 2019-02-13)
DX: R07.9 Chest pain, unspecified (principal); D72.829 Elevated white blood cell count, unspecified; Z87.19 Personal history of other diseases of the digestive system; Z87.2 Personal history of diseases of the skin and subcutaneous tissue
CPT/HCPCS: 36415; 71046-TC-FY; 80053; 81003; 83690; 83735; 84100; 84484; 84703; 85025; 93005; 93010; 99285-25; J7030

== ENCOUNTER 2019-03-05 08:47 | Emergency (ER) | payer OTHER ==
--- NOTE | 2019-03-05 09:15 | PDOC ---
History of Present Illness - General Chief Complaint: Pain Stated Complaint: ABD PAIN Time Seen by Provider: 03/05/19 09:15 History Source: Patient Exam Limitations: No Limitations - History of Present Illness Initial Comments: 03/05/19 10:51 39-year-old female with history of PCOS, hidradenitis presents today with atraumatic right-sided abdominal pain, radiating to the back, 10 of 10, sharp, without associated nausea/vomiting/dysuria/hematuria. Patient reports several episodes of loose watery stools 1 day previously. There is no history of travel nor sick contacts. Patient denies fever or chills. No history of similar symptoms in the past. REVIEW OF SYSTEMS CONSTITUTIONAL: No fever, no chills, no fatigue EYES: No visual changes ENT: No ear pain, no sore throat CARDIOVASCULAR: No chest pain, no palpitations RESPIRATORY: No cough, no SOB GI: + abdominal pain, no nausea, no vomiting, no constipation, + diarrhea GENITOURINARY: No dysuria, no frequency, no hematuria MUSKULOSKELETAL: No backpain, no joint pain, no myalgias SKIN: No rash NEURO: No headache EXAMINATION CONSTITUTIONAL: Patient is awake and alert, obese, rising in pain, in moderate distress HEAD: Normocephalic; atraumatic EYES: PERRL; EOM intact ENMT: External appears normal; normal oropharynx NECK: Supple; non-tender; no cervical lymphadenopathy CARD: Normal S1, S2; no murmurs, rubs, or gallops RESP: Normal chest excursion with respiration; breath sounds clear and equal bilaterally; no wheezes, rhonchi, or rales ABD: Soft, non-distended; + ruq tender; no palpable organomegaly, no palpable hernias; no cva ttp EXT: Normal ROM in all four extremities; non-tender to palpation; distal pulses intact SKIN: Warm, dry, no rash NEURO: No focal neurological deficiencies. Past History - Past Medical History Allergies/Adverse Reactions: Allergies Allergy/AdvReac Type Severity Reaction Status Date / Time No Known Drug Allergies Allergy Verified 03/05/19 09:11 Home Medications: Ambulatory Orders Doxycycline Hyclate 100 mg PO BID 02/13/19 Levofloxacin [Levaquin] 500 mg PO DAILY 02/13/19 Nortriptyline HCl [Pamelor -] 10 mg PO HS 02/13/19 Rifampin [Rifadin] 300 mg PO BID 02/13/19 Spironolactone 25 mg PO DAILY 02/13/19 Tramadol HCl 50 mg PO QID PRN #12 tablet MDD 4 02/13/19 metroNIDAZOLE [Flagyl -] 500 mg PO TID 02/13/19 Adalimumab [Humira] 40 mg SQ WEEKLY 03/05/19 COPD: No GI Disorders: Yes (REFLUX) - Family Disease History Family Disease History: Diabetes: Mother - Immunization History Immunization Up to Date: Yes - Suicide/Smoking/Psychosocial Hx Smoking Status: Yes Smoking History: Current every day smoker Have you smoked in the past 12 months: Yes Number of Cigarettes Smoked Daily: 10 'Breaking Loose' booklet given: 04/08/18 Hx Alcohol Use: No Drug/Substance Use Hx: No Substance Use Type: None Hx Substance Use Treatment: No Abd/GI Specific PMHX - Complaint Specific PMHX GERD: Yes ED Treatment Course - LABORATORY CBC & Chemistry Diagram: 03/05/19 09:38 03/05/19 09:38 Medical Decision Making - Medical Decision Making 03/05/19 10:53 39-year-old female with history of PCOS and hidradenitis appeared to the presents with atraumatic right upper quadrant pain. Differential diagnoses includes cholelithiasis versus hepatitis versus hepatic pseudoptosis versus lipase versus colitis versus pyelonephritis versus nephrolithiasis. We'll obtain CBC/CMP/UA. Will obtain right upper quadrant ultrasound. Will administer IV Toradol. Will reassess. 03/05/19 11:04 CBC reveals mild leukocytosis which in comparison to previous has decreased. There is no evidence of neutrophilia. Ultrasound is within normal limit. Will obtain CT with by mouth and IV contrast. 03/05/19 15:17 Patient reassessed. Patient is resting comfortably. Patient's symptoms have decreased in severity and the pain is currently reported at 1. On palpation there is no right lower quadrant right upper quadrant pain. Minimal pain is noted to the right flank which is exacerbated with changes in position. CT of abdomen and pelvis reveals no evidence of acute intra-abdominal pathology. Small right ovarian cyst is noted. Also noted a small bilateral pleural effusions. I discussed the case with Dr. Donahue, patient's PMD. He informed me that the patient has had history of ovarian cyst in the past and a previously obtain chest x-ray revealed a small left pleural effusion. Patient's vital signs are stable and oxygen saturation is noted to be 98%. I do not believe patient requires admission at this time and may be discharged to follow-up as an outpatient. I do not suspect acute infection or PE at this time. *DC/Admit/Observation/Transfer Diagnosis at time of Disposition: Abdominal pain Qualifiers: Abdominal location: unspecified location Qualified Code(s): R10.9 - Unspecified abdominal pain - Discharge Dispostion Disposition: HOME Condition at time of disposition: Stable - Referrals Referrals: Nico Trivedi MD [Primary Care Provider] - Kanu Welsh MD, MD [Staff Physician] - - Patient Instructions Printed Discharge Instructions: DI for Abdominal Pain-Adult Additional Instructions: Please follow-up with your primary care physician. Return immediately for worsening symptoms. - Post Discharge Activity
[2019-03-05] MEDS ORDERED: KETOROLAC TROMETHAMINE 15 MG/ML VIAL IVPUSH ONE (09:28)
[2019-03-05] MEDS ORDERED: SODIUM CHLORIDE 1,000 ML IV STA (09:28)
[2019-03-05 09:31] VITALS: BMI 35.2
[2019-03-05] MEDS ORDERED: KETOROLAC TROMETHAMINE 15 MG/ML VIAL ONE (09:33)
[2019-03-05 09:46] LABS: BASO % 0.6 % (0-2.0); EOS % 1.1 % (0-4.5); HEMATOCRIT 35.5 % (32.4-45.2); HEMOGLOBIN 11.9 GM/dL (10.7-15.3); LYMPH % 19.7 % (8-40); MCH 28.1 pg (25.7-33.7); MCHC 33.4 g/dl (32.0-36.0); MEAN PLT VOLUME 9.4 fl (7.5-11.1); MONO % 4.3 % (3.8-10.2); NEUT % 74.3 % (42.8-82.8); PLATELET COUNT 236 K/MM3 (134-434); RBC 4.23 M/mm3 (3.60-5.2); RDW 14.7 % (11.6-15.6); WHITE BLOOD COUNT 14.5 K/mm3 (4.0-10.0)
[2019-03-05 10:17] LABS: INR 1.09 (0.83-1.09); PROTHROMBIN TIME (PATIENT) 12.9 SEC (9.7-13.0)
[2019-03-05 10:21] LABS: ALBUMIN 3.2 g/dl (3.4-5.0); ALK PHOS 85 U/L (45-117); ANION GAP 5 MMOL/L (8-16); BILIRUBIN,TOTAL 0.3 mg/dL (0.2-1); BLOOD UREA NITROGEN 10 mg/dL (7-18); CALCIUM 8.9 mg/dL (8.5-10.1); CHLORIDE 106 mmol/L (98-107); CO2 26 mmol/L (21-32); CREATININE 0.8 mg/dL (0.55-1.3); GLUCOSE,RANDOM 96 mg/dL (74-106); LIPASE 104 U/L (73-393); POTASSIUM 4.1 mmol/L (3.5-5.1); SGOT/AST 31 U/L (15-37); SGPT/ALT 52 U/L (13-61); SODIUM 137 mmol/L (136-145); TOT PROT 7.7 g/dl (6.4-8.2)
[2019-03-05 10:29] LABS: HCG,QUALITATIVE URINE Negative
[2019-03-05 10:42] LABS: EPI CELLS >36 /HPF (0-5/HPF); PH,URINE 5.5 (5.0-8.0); URINE APPEARANCE CLEAR; URINE BILIRUBIN NEGATIVE (NEGATIVE); URINE CASTS 50 /hpf (0-8); URINE COLOR YELLOW; URINE GLUCOSE (UA) NEGATIVE (NEGATIVE); URINE KETONE NEGATIVE (NEGATIVE); URINE LEUK ESTERASE NEGATIVE (NEGATIVE); URINE NITRITE NEGATIVE (NEGATIVE); URINE PROTEIN NEGATIVE (NEGATIVE); URINE RBC 15 /hpf (0-4); URINE UROBILINOGEN 0.2 mg/dL (0.2-1.0); URINE WBC 3 /hpf (0-5)
[2019-03-05 15:17] VITALS: BP 125/79; PULSE 84; TEMP 98
== END 2019-03-05 15:40 | disposition home or self-care (01) ==
LOC: JER 08:47
PROC: 3E0333Z Introduction of Anti-inflammatory into Peripheral Vein, Percutaneous Approach (ICD-10-PCS; principal; 2019-03-05)
PROC: 3E0337Z Introduction of Electrolytic and Water Balance Substance into Peripheral Vein, Percutaneous Approach (ICD-10-PCS; 2019-03-05)
DX: R10.9 Unspecified abdominal pain (principal); E28.2 Polycystic ovarian syndrome; F17.210 Nicotine dependence, cigarettes, uncomplicated; K21.9 Gastro-esophageal reflux disease without esophagitis
CPT/HCPCS: 36415; 74177-TC; 76705-TC; 80053; 81003; 83690; 84703; 85025; 85610; 87086; 99282-25; J7030; Q9967

== ENCOUNTER 2019-09-02 10:05 | Emergency (ER) | payer OTHER ==
[2019-09-02 10:10] VITALS: BP 144/81; PULSE 94; TEMP 98.3; BMI 34.4
[2019-09-02] MEDS ORDERED: SILVER SULFADIAZINE 1% TOP CREAM 50 GM JAR TP ONE ×2 (11:03→11:14)
--- NOTE | 2019-09-02 11:12 | PDOC ---
History of Present Illness - General Chief Complaint: Burn Stated Complaint: BURN/LF HAND INJURY Time Seen by Provider: 09/02/19 10:37 - History of Present Illness Initial Comments: 09/02/19 11:04 CHIEF COMPLAINT: burn HISTORY OF PRESENT ILLNESS: 39 yo F with no significant PMH presents to [facility] track with burn to left hand. Patient reports she accidentally grabbed her curling iron while it was on this morning. No recent travel or sick contacts. PAST MEDICAL HISTORY: Denies past medical history FAMILY HISTORY: Denies SOCIAL HISTORY: Denies tobacco, alcohol, illicit drug use. SURGICAL HISTORY: Denies ALLERGIES: No known drug allergies REVIEW OF SYSTEMS General/Constitutional: Denies fever or chills. Denies weakness, weight change. HEENT: Denies change in vision. Denies ear pain or discharge. Denies sore throat. Cardiovascular: Denies chest pain or shortness of breath. Respiratory: Denies cough, wheezing, or hemoptysis. Gastrointestinal: Denies nausea, vomiting, diarrhea or constipation. Denies rectal bleeding. Genitourinary: Denies dysuria, frequency, or change in urination. Musculoskeletal: Denies joint or muscle swelling or pain. Denies neck or back pain. Skin: "I burned my hand on my curling iron this morning." Denies rash or easy bruising. Neurologic: Denies headache, vertigo, loss of consciousness, or loss of sensation. PHYSICAL EXAM General Appearance: Well-appearing, appropriately dressed. No apparent distress , no intoxication. HEENT: EOMI, PERRLA, normal ENT inspection, normal voice, TMs normal, pharynx normal. No conjunctival pallor. No photophobia, scleral icterus. Neck: Supple. Trachea midline. No tenderness, rigidity, carotid bruit, stridor , lymphadenopathy, or thyromegaly. Respiratory/Chest: Lungs CTAB. No shortness of breath, chest tenderness, respiratory distress, accessory muscle use. No crackles, rales, rhonchi, stridor , wheezing, dullness Cardiovascular: RRR. S1, S2. No JVD, murmur, bradycardia, tachycardia. Vascular Pulses: Dorsalis-Pedis (R): 2+, Dorsalis-Pedis (L): 2+ Gastrointestinal/Abdominal: Normal bowel sounds. Abdomen soft, non-distended. No tenderness or rebound tenderness. No organomegaly, pulsatile mass, guarding , hernia, hepatomegaly, splenomegaly. Lymphatic: No adenopathy, tenderness. Musculoskeletal/Extremities: Normal inspection. FROM of all extremities, normal capillary refill. Pelvis Stable. No CVA tenderness. No tenderness to extremities, pedal edema, swelling, erythema or deformity. Integumentary: Mild erythema, 1st degree burn to volar aspect of 3rd, 4th, and 5th digits. Appropriate color, dry, warm. No cyanosis, erythema, jaundice or rash Neurologic: wet pour supervisor II-XII intact. Fully oriented, alert. Appropriate mood/affect. Motor strength 5/5. No appreciable EOM palsy, facial droop or sensory deficit. Past History - Past Medical History Allergies/Adverse Reactions: Allergies Allergy/AdvReac Type Severity Reaction Status Date / Time No Known Drug Allergies Allergy Verified 03/05/19 09:11 Home Medications: Ambulatory Orders Doxycycline Hyclate 100 mg PO BID 02/13/19 Levofloxacin [Levaquin] 500 mg PO DAILY 02/13/19 Nortriptyline HCl [Pamelor -] 10 mg PO HS 02/13/19 Rifampin [Rifadin] 300 mg PO BID 02/13/19 Spironolactone 25 mg PO DAILY 02/13/19 Tramadol HCl 50 mg PO QID PRN #12 tablet MDD 4 02/13/19 metroNIDAZOLE [Flagyl -] 500 mg PO TID 02/13/19 Adalimumab [Humira] 40 mg SQ WEEKLY 03/05/19 Silver Sulfadiazine [Silvadene] 25 gm TP ASDIR #1 cream..g. 09/02/19 COPD: No GI Disorders: Yes (REFLUX) - Immunization History Immunization Up to Date: Yes - Psycho Social/Smoking Cessation Hx Smoking Status: Yes Smoking History: Never smoked Have you smoked in the past 12 months: No Number of Cigarettes Smoked Daily: 10 Information on smoking cessation initiated: No 'Breaking Loose' booklet given: 04/08/18 Hx Alcohol Use: No Drug/Substance Use Hx: No Substance Use Type: None Hx Substance Use Treatment: No *Physical Exam - Vital Signs Last Vital Signs Temp Pulse Resp BP Pulse Ox 98.3 F 94 H 18 144/81 98 09/02/19 10:08 09/02/19 10:08 09/02/19 10:08 09/02/19 10:08 09/02/19 10:08 Medical Decision Making - Medical Decision Making 09/02/19 11:12 39 yo F with no significant PMH presents to fast track with burn to left hand. -silvadene topical Advised patient to take medication as prescribed and follow up with burn center in 1-2 weeks. Advised patient of signs and symptoms for return to ED. Patient verbalized understanding and agrees to plan. Discharge - Discharge Information Problems reviewed: Yes Clinical Impression/Diagnosis: Burn Condition: Stable Disposition: HOME - Admission No - Additional Discharge Information Prescriptions: Silver Sulfadiazine [Silvadene] 25 gm TP ASDIR #1 cream..g. - Follow up/Referral Referrals: Luisana Flores MD [Staff Physician] - - Patient Discharge Instructions Patient Printed Discharge Instructions: DI for Han - Post Discharge Activity
== END 2019-09-02 12:02 | disposition home or self-care (01) ==
LOC: JERFT 10:05
PROC: 2W2FX4Z Dressing of Left Hand using Bandage (ICD-10-PCS; principal; 2019-09-02)
DX: T23.152A Burn of first degree of left palm, initial encounter (principal); T23.132A Burn of first degree of multiple left fingers (nail), not including thumb, initial encounter; X19.XXXA Contact with other heat and hot substances, initial encounter; Y93.9 Activity, unspecified; Y92.038 Other place in apartment as the place of occurrence of the external cause; Y99.8 Other external cause status
CPT/HCPCS: 99281-25

== ENCOUNTER 2019-12-05 13:43 | Emergency (ER) | payer OTHER ==
[2019-12-05 13:48] VITALS: BP 144/84; PULSE 88; TEMP 98.3; BMI 36.0
--- NOTE | 2019-12-05 13:48 | PDOC ---
Rapid Medical Evaluation Time Seen by Provider: 12/05/19 13:46 Medical Evaluation: Allergies Allergy/AdvReac Type Severity Reaction Status Date / Time No Known Drug Allergies Allergy Verified 03/05/19 09:11 12/05/19 13:46 HPI: Flu like symptoms since >10 days PE: Nasal congestion no distress ORDERS: Nothing Discharge Disposition - Diagnosis URI (upper respiratory infection) - Referrals - Patient Instructions - Post Discharge Activity
--- NOTE | 2019-12-05 14:06 | PDOC ---
History of Present Illness - General Chief Complaint: Cold Symptoms Stated Complaint: COLD SYMPTOMS Time Seen by Provider: 12/05/19 13:46 History Source: Patient Exam Limitations: No Limitations - History of Present Illness Initial Comments: 12/05/19 14:00 Patient is a 39-year-old female with history of GERD, hidradenitis, with excision of glands axilla with skin graft complaining of cough symptoms x10 days. Patient states she has been sick since [place] with a cough which is nonproductive. She went to urgent care 3 days ago and was given nasal spray which she has been using without relief of symptoms. She is here because she thinks prescription for penicillin will help. Denies any fever currently, SOB. LMP 1 week ago. States no chance that she could be . PMD: [facility] PMHX: As above PSOCHX: neg etoh, drug, cig ALL: NKDA GENERAL/CONSTITUTIONAL: [No fever or chills. No weakness. No weight change.] HEAD, EYES, EARS, NOSE AND THROAT: [No change in vision. No ear pain or discharge. No sore throat.] CARDIOVASCULAR: [No chest pain or shortness of breath.] RESPIRATORY: [(+) cough, (-) wheezing, or hemoptysis.] GASTROINTESTINAL: [No nausea, vomiting, diarrhea or constipation. No rectal bleeding.] GENITOURINARY: [No dysuria, frequency, or change in urination.] MUSCULOSKELETAL: [No joint or muscle swelling or pain. No neck or back pain.] SKIN AND BREASTS: [No rash or easy bruising.] NEUROLOGIC: [No headache, vertigo, loss of consciousness, or loss of sensation.] PSYCHIATRIC: [No depression or anxiety.] ENDOCRINE: [No increased thirst. No abnormal weight change.] HEMATOLOGIC/LYMPHATIC: [No anemia, easy bleeding, or history of blood clots.] ALLERGIC/IMMUNOLOGIC: [No hives or skin allergy. No latex allergy.] GENERAL: [The patient is awake, alert, and fully oriented, in no acute distress. ] HEAD: [Normal with no signs of trauma.] EYES: [Pupils equal, round and reactive to light, extraocular movements intact, sclera anicteric, conjunctiva clear.] ENT: [Ears normal, nares patent, oropharynx clear without exudates. Moist mucous membranes.] NECK: [Normal range of motion, supple without lymphadenopathy, JVD, or masses.] LUNGS: [Breath sounds equal, clear to auscultation bilaterally. No wheezes, and no crackles.] HEART: [Regular rate and rhythm, normal S1 and S2 without murmur, rub.] ABDOMEN: [Soft, nontender, normoactive bowel sounds. No guarding, no rebound. No masses.] EXTREMITIES: [Normal range of motion, no edema. No clubbing or cyanosis. No cords, erythema, or tenderness.] NEUROLOGICAL: [Cranial nerves II through XII grossly intact. Normal speech, normal gait.] PSYCH: [Normal mood, normal affect.] SKIN: [Warm, Dry, normal turgor, no rashes or lesions noted.] Past History - Past Medical History Allergies/Adverse Reactions: Allergies Allergy/AdvReac Type Severity Reaction Status Date / Time No Known Drug Allergies Allergy Verified 12/05/19 13:48 Home Medications: Ambulatory Orders Doxycycline Hyclate 100 mg PO BID 02/13/19 Levofloxacin [Levaquin] 500 mg PO DAILY 02/13/19 Nortriptyline HCl [Pamelor -] 10 mg PO HS 02/13/19 Rifampin [Rifadin] 300 mg PO BID 02/13/19 Spironolactone 25 mg PO DAILY 02/13/19 Tramadol HCl 50 mg PO QID PRN #12 tablet MDD 4 02/13/19 metroNIDAZOLE [Flagyl -] 500 mg PO TID 02/13/19 Adalimumab [Humira] 40 mg SQ WEEKLY 03/05/19 Ibuprofen 800 mg PO TID #20 tablet 09/02/19 Silver Sulfadiazine [Silvadene] 25 gm TP ASDIR #1 cream..g. 09/02/19 Promethazine HCl/Codeine [Prometh-Codein 6.25-10 mg/5 ml] 5 ml PO BID #40 ml MDD 15ml 12/05/19 COPD: No GI Disorders: Yes (REFLUX) - Immunization History Immunization Up to Date: Yes - Psycho Social/Smoking Cessation Hx Smoking Status: Yes Smoking History: Never smoked Have you smoked in the past 12 months: No Number of Cigarettes Smoked Daily: 10 'Breaking Loose' booklet given: 04/08/18 Hx Alcohol Use: No Drug/Substance Use Hx: No Substance Use Type: None Hx Substance Use Treatment: No *Physical Exam - Vital Signs Last Vital Signs Temp Pulse Resp BP Pulse Ox 98.3 F 88 18 144/84 100 12/05/19 13:44 12/05/19 13:44 12/05/19 13:44 12/05/19 13:44 12/05/19 13:44 ED Treatment Course - RADIOLOGY Radiology Studies Ordered: Category Date Time Status CHEST PA & LAT [RAD] Stat Radiology 12/05/19 13:59 Ordered Medical Decision Making - Medical Decision Making 12/05/19 14:00 Patient is a 39-year-old female with history of GERD, hidradenitis, with excision of glands axilla with skin graft complaining of cough symptoms x10 days. Patient states she has been sick since [place] with a cough which is nonproductive. She went to urgent care 3 days ago and was given nasal spray which she has been using without relief of symptoms. She is here because she thinks prescription for penicillin will help. Denies any fever currently, SOB. LMP 1 week ago. States no chance that she could be . Symptoms consistent with viral illness. Chest x-ray rule out pneumonia Chest x-ray read as negative. I discussed the physical exam findings, ancillary test results and final diagnoses with the patient. I answered all of the patient's questions. The patient was satisfied with the care received and felt comfortable with the discharge plan and treatment plan. The Patient agrees to follow up with the primary care physician within 24-72 hours. Discharge - Discharge Information Problems reviewed: Yes Clinical Impression/Diagnosis: URI (upper respiratory infection) Qualifiers: URI type: unspecified viral URI Qualified Code(s): J06.9 - Acute upper respiratory infection, unspecified Condition: Stable Disposition: HOME - Additional Discharge Information Prescriptions: Promethazine HCl/Codeine [Prometh-Codein 6.25-10 mg/5 ml] 5 ml PO BID #40 ml MDD 15ml - Follow up/Referral Referrals: Nico Trivedi MD [Primary Care Provider] - - Patient Discharge Instructions Patient Printed Discharge Instructions: DI for Viral Upper Respiratory Infection -- Adult Additional Instructions: Your Discharge Instructions: You must call primary care physician within 24 hours to arrange follow-up. Return to the Emergency Department with any new, persistent or worsening symptoms, for fever, chills, SOB, dizziness or any other concerning changes that may occur. - Post Discharge Activity
== END 2019-12-05 14:44 | disposition home or self-care (01) ==
LOC: JERFT 13:43
DX: J06.9 Acute upper respiratory infection, unspecified (principal); K21.9 Gastro-esophageal reflux disease without esophagitis
CPT/HCPCS: 71046-TC-FY; 99281-25

== ENCOUNTER 2021-02-15 00:19 | Emergency (ER) | payer OTHER ==
[2021-02-15 00:51] VITALS: BP 144/81; PULSE 83; TEMP 98.2; BMI 36.0
[2021-02-15] MEDS ORDERED: DIPHTH,PERTUSS(ACELL),TET 0.5 ML DISP.SYRIN IM ONE (02:06)
[2021-02-15] MEDS ORDERED: ACETAMINOPHEN 325 MG TABLET (FP) ONE (02:06)
[2021-02-15] MEDS ORDERED: ACETAMINOPHEN 500 MG TABLET (FP) PO ONE (02:09)
== END 2021-02-15 03:48 | disposition home or self-care (01) ==
LOC: JER 00:19
PROC: 3E0234Z Introduction of Serum, Toxoid and Vaccine into Muscle, Percutaneous Approach (ICD-10-PCS; principal; 2021-02-15)
DX: S61.306A Unspecified open wound of right little finger with damage to nail, initial encounter (principal); S63.616A Unspecified sprain of right little finger, initial encounter
CPT/HCPCS: 73140-TC-LT-FY; 99284-25

== ENCOUNTER 2023-03-26 19:35 | Emergency (ER) | payer OTHER ==
[2023-03-26 20:05] VITALS: BP 149/76; PULSE 78; RESP 20; TEMP 98.1; BMI 37.5
[2023-03-26] MEDS ORDERED: ACETAMINOPHEN 1000 MG/100 ML BAG IVPB ONE (22:08)
[2023-03-26] MEDS ORDERED: SODIUM CHLORIDE 0.9% 500 ML INFUS.BAG IV ONE (22:08)
[2023-03-26] MEDS ORDERED: METOCLOPRAMIDE HCL INJECTION 10 MG/2 ML VIAL IVPB ONE (22:08)
[2023-03-26] MEDS ORDERED: METOCLOPRAMIDE HCL INJECTION 10 MG/2 ML VIAL ONE (23:27)
[2023-03-26] MEDS ORDERED: ACETAMINOPHEN INJECTION 100 ML IVPB ONE (23:27)
== END 2023-03-27 00:55 | disposition home or self-care (01) ==
LOC: JER 19:35 → JERFT 19:35 → JER 03-27 00:55
PROC: 3E033NZ Introduction of Analgesics, Hypnotics, Sedatives into Peripheral Vein, Percutaneous Approach (ICD-10-PCS; principal; 2023-03-26)
PROC: 3E033GC Introduction of Other Therapeutic Substance into Peripheral Vein, Percutaneous Approach (ICD-10-PCS; 2023-03-26)
DX: R51.9 Headache, unspecified (principal); H53.71 Glare sensitivity
CPT/HCPCS: 70450-TC; 99284-25

== ENCOUNTER 2023-04-20 09:18 | Emergency (ER) | payer OTHER ==
[2023-04-20 09:46] VITALS: TEMP 98; BMI 37.5
[2023-04-20] MEDS ORDERED: morphine CARPU-JECT 4 MG/1 ML DISP.SYRIN IVPUSH ONE (10:19)
[2023-04-20] MEDS ORDERED: KETOROLAC TROMETHAMINE 30 MG/1 ML VIAL IVPUSH ONE ×2 (11:24→19:09)
[2023-04-20] MEDS ORDERED: morphine SULFATE 4 MG/ML VIAL ONE (11:29)
[2023-04-20] MEDS ORDERED: KETOROLAC TROMETHAMINE 30 MG/1 ML VIAL ONE ×2 (11:30→19:26)
[2023-04-20 11:35] LABS: BASO % 0.5 % (0-2.0); EOS % 0.4 % (0-4.5); HEMATOCRIT 35.6 % (32.4-45.2); HEMOGLOBIN 11.8 GM/dL (10.7-15.3); LYMPH % 13.8 % (8-40); MCH 27.5 pg (25.7-33.7); MCHC 33.2 g/dl (32.0-36.0); MEAN CELL VOLUME 83.1 fl (80-96); MEAN PLT VOLUME 10.1 fl (7.5-11.1); MONO % 2.7 % (3.8-10.2); NEUT % 82.6 % (42.8-82.8); PLATELET COUNT 217 10^3/uL (134-434); RBC 4.28 M/mm3 (3.60-5.2); RDW 15.2 % (11.6-15.6); WHITE BLOOD COUNT 15.9 K/mm3 (4.0-10.0)
[2023-04-20 11:43] LABS: INR 1.16 (0.83-1.09); PROTHROMBIN TIME (PATIENT) 13.4 SEC (9.7-13.0)
[2023-04-20 11:46] LABS: ACTIVATED PTT 29.7 SECONDS (25.2-36.5)
[2023-04-20 11:56] LABS: POTASSIUM 4.3 mmol/L (3.5-5.1)
[2023-04-20 11:58] LABS: CALCIUM 8.8 mg/dL (8.5-10.1)
[2023-04-20 11:59] LABS: ALBUMIN 3.3 g/dl (3.4-5.0); BLOOD UREA NITROGEN 9.2 mg/dL (7-18)
[2023-04-20 12:02] LABS: CREATININE 0.8 mg/dL (0.55-1.3)
[2023-04-20 12:03] LABS: BILIRUBIN,TOTAL 0.3 mg/dL (0.2-1); TOT PROT 6.9 g/dl (6.4-8.2)
[2023-04-20] MEDS ORDERED: LIDOCAINE 5% TOPICAL PATCH TP ONE (12:56)
[2023-04-20] MEDS ORDERED: LIDOCAINE 5% TOPICAL PATCH ONE (13:26)
[2023-04-20] MEDS ORDERED: METHOCARBAMOL 500 MG TABLET PO ONE (16:07)
[2023-04-20] MEDS ORDERED: METHOCARBAMOL 500 MG TABLET ONE (16:24)
[2023-04-20 18:42] LABS: URINE APPEARANCE CLEAR; URINE BILIRUBIN NEGATIVE (NEGATIVE); URINE COLOR YELLOW; URINE GLUCOSE (UA) NEGATIVE (NEGATIVE); URINE KETONE NEGATIVE (NEGATIVE)
[2023-04-20 18:43] LABS: PH,URINE 6.5 (5.0-8.0); URINE LEUK ESTERASE NEGATIVE (NEGATIVE); URINE NITRITE NEGATIVE (NEGATIVE); URINE PROTEIN NEGATIVE (NEGATIVE); URINE UROBILINOGEN 0.2 mg/dL (0.2-1.0)
[2023-04-20 19:26] VITALS: BP 141/77; PULSE 76; RESP 16
[2023-04-20] MEDS ORDERED: LIDOCAINE PATCH REMOVAL MC ONE (22:00)
== END 2023-04-20 19:50 | disposition home or self-care (01) ==
LOC: JER 09:18
PROC: 3E0333Z Introduction of Anti-inflammatory into Peripheral Vein, Percutaneous Approach (ICD-10-PCS; principal; 2023-04-20)
PROC: 3E0333Z Introduction of Anti-inflammatory into Peripheral Vein, Percutaneous Approach (ICD-10-PCS; 2023-04-20)
PROC: 3E033GC Introduction of Other Therapeutic Substance into Peripheral Vein, Percutaneous Approach (ICD-10-PCS; 2023-04-20)
DX: M54.6 Pain in thoracic spine (principal); K59.00 Constipation, unspecified; Z20.822 Contact with and (suspected) exposure to COVID-19
CPT/HCPCS: 36415; 74174-TC; 80053; 81003; 83605; 83690; 84703; 85025; 85610; 85730; 86850; 86900; 86901; 87086; 93005; 93010; 99285-25; C9803-CS; Q9967; U0003; U0005

== ENCOUNTER 2024-07-02 20:43 | Emergency (ER) | payer OTHER ==
[2024-07-02 20:53] VITALS: BP 139/69; PULSE 90; RESP 18; TEMP 98.6; BMI 36.0
[2024-07-02] MEDS ORDERED: LIDOCAINE 4% PATCH TP ONE (21:58)
[2024-07-02] MEDS ORDERED: diazePAM 5 MG TABLET ONE (21:58)
[2024-07-02] MEDS ORDERED: IBUPROFEN 600 MG TABLET (FP) PO ONE (21:58)
[2024-07-02] MEDS ORDERED: LIDOCAINE PATCH REMOVAL MC SCH (22:00)
[2024-07-02] MEDS: LIDOCAINE 4% PATCH TP ONE (22:03)
[2024-07-02] MEDS: IBUPROFEN 600 MG TABLET (FP) PO ONE (22:13)
[2024-07-02] MEDS: diazePAM 5 MG TABLET PO ONE (22:14)
== END 2024-07-02 22:46 | disposition home or self-care (01) ==
LOC: JER 20:43 → JERFT 20:43
DX: S16.1XXA Strain of muscle, fascia and tendon at neck level, initial encounter (principal); R51.9 Headache, unspecified; V49.40XA Driver injured in collision with unspecified motor vehicles in traffic accident, initial encounter
CPT/HCPCS: 72050-TC-FY; 99283-25

== ENCOUNTER 2024-10-08 08:57 | Emergency (ER) | payer OTHER ==
[2024-10-08 09:22] VITALS: BMI 36.0
[2024-10-08] MEDS ORDERED: ACETAMINOPHEN INJECTION 100 ML ONE (10:07)
[2024-10-08] MEDS ORDERED: MAG HYDROX/AL HYDROX/SIMETH 30 ML UNIT-DOSE CUP ONE (10:08)
[2024-10-08] MEDS ORDERED: FAMOTIDINE 20 MG/50 ML IVPB 20 MG/50 ML MG IVPB ONE (10:08)
[2024-10-08] MEDS: MAG HYDROX/AL HYDROX/SIMETH 30 ML UNIT-DOSE CUP PO ONE (10:26)
[2024-10-08] MEDS: ACETAMINOPHEN 1000 MG/100 ML BAG IVPB ONE (10:26)
[2024-10-08] MEDS: FAMOTIDINE 20 MG/50 ML IVPB 20 MG/50 ML MG IVPB ONE (10:27)
[2024-10-08 11:03] LABS: BASO % 0.6 % (0-2.0); EOS % 0.7 % (0-4.5); HEMATOCRIT 37.1 % (32.4-45.2); LYMPH % 23.2 % (8-40); MCH 27.3 pg (25.7-33.7); MCHC 32.3 g/dl (32.0-36.0); MEAN CELL VOLUME 84.5 fl (80-96); MEAN PLT VOLUME 9.8 fl (7.5-11.1); MONO % 3.4 % (3.8-10.2); NEUT % 72.1 % (42.8-82.8); PLATELET COUNT 271 10^3/uL (134-434); RBC 4.39 M/mm3 (3.60-5.2); RDW 14.8 % (11.6-15.6); WHITE BLOOD COUNT 15.3 K/mm3 (4.0-10.0)
[2024-10-08 11:04] LABS: EPI CELLS >36 /uL (0-25.1); HYALINE CASTS 1 /uL (0-3.1); PH,URINE 5.5 (5.0-8.0); URINE APPEARANCE CLEAR; URINE BACTERIA 327 /uL (0-1359); URINE BILIRUBIN NEGATIVE (NEGATIVE); URINE COLOR YELLOW; URINE GLUCOSE (UA) NEGATIVE (NEGATIVE); URINE KETONE NEGATIVE (NEGATIVE); URINE LEUK ESTERASE NEGATIVE (NEGATIVE); URINE NITRITE NEGATIVE (NEGATIVE); URINE PROTEIN NEGATIVE (NEGATIVE); URINE UROBILINOGEN 0.2 mg/dL (0.2-1.0); URINE WBC 10 /uL (0-25.8)
[2024-10-08] MEDS ORDERED: morphine SULFATE 4 MG/ML VIAL ONE (11:07)
[2024-10-08 11:08] LABS: HCG,QUALITATIVE URINE Negative; URINE RBC 62.8 /uL (0-23.9)
[2024-10-08] MEDS: morphine CARPU-JECT 4 MG/1 ML DISP.SYRIN IVPUSH ONE (11:15)
[2024-10-08 11:45] LABS: ALBUMIN 3.4 g/dl (3.4-5.0)
[2024-10-08 11:46] LABS: CALCIUM 8.9 mg/dL (8.5-10.1)
[2024-10-08 11:47] LABS: BLOOD UREA NITROGEN 9.7 mg/dL (7-18)
[2024-10-08 11:50] LABS: CREATININE 0.9 mg/dL (0.55-1.3)
[2024-10-08 11:51] LABS: BILIRUBIN,TOTAL 0.3 mg/dL (0.2-1); TOT PROT 7.2 g/dl (6.4-8.2)
[2024-10-08] MEDS ORDERED: KETOROLAC TROMETHAMINE 30 MG/1 ML VIAL ONE (13:37)
[2024-10-08] MEDS ORDERED: LIDOCAINE 5% TOPICAL PATCH ONE (13:37)
[2024-10-08] MEDS ORDERED: diazePAM 5 MG TABLET ONE (13:37)
[2024-10-08] MEDS: KETOROLAC TROMETHAMINE 30 MG/1 ML VIAL IVPUSH ONE (13:53)
[2024-10-08] MEDS: LIDOCAINE 5% TOPICAL PATCH TP ONE (13:53)
[2024-10-08] MEDS: diazePAM 5 MG TABLET PO ONE (13:53)
[2024-10-08 14:28] VITALS: BP 106/54; PULSE 70; RESP 20; TEMP 98
[2024-10-08] MEDS ORDERED: LIDOCAINE PATCH REMOVAL MC ONE (22:00)
== END 2024-10-08 14:37 | disposition home or self-care (01) ==
LOC: JER 08:57
PROC: 3E033GC Introduction of Other Therapeutic Substance into Peripheral Vein, Percutaneous Approach (ICD-10-PCS; principal; 2024-10-08)
PROC: 3E033NZ Introduction of Analgesics, Hypnotics, Sedatives into Peripheral Vein, Percutaneous Approach (ICD-10-PCS; 2024-10-08)
PROC: 3E0333Z Introduction of Anti-inflammatory into Peripheral Vein, Percutaneous Approach (ICD-10-PCS; 2024-10-08)
PROC: 3E033NZ Introduction of Analgesics, Hypnotics, Sedatives into Peripheral Vein, Percutaneous Approach (ICD-10-PCS; 2024-10-08)
DX: R10.31 Right lower quadrant pain (principal); M54.50 Low back pain, unspecified
CPT/HCPCS: 36415; 71046-TC-FY; 74177-TC; 80053; 81003; 83690; 84484; 84703; 85025; 87086; 99285-25; J0131; Q9967